=== PATIENT | female | born 1965 | race Caucasian/White ===

== ENCOUNTER 2019-04-11 13:00 | Outpatient (RCR) | payer OTHER, SELFPAY ==
--- NOTE | 2019-02-13 15:20 | PT.OIE ---
Current Diagnoses Pain in left shoulder (02/13/19) Impingement syndrome of left shoulder (02/13/19) Strain of unspecified muscle, fascia and tendon at shoulder and upper arm level, left arm, subsequent encounter (02/13/19) Provider Visit Care Team Role Provider Type Harlan Meade MD Primary Care Provider Physician Specialty: Internal Medicine Address: [address] [place] [address], [id number] Email: Sumit Charlton Attending Provider Non-Staff Specialty: Medical Address: [address] [place] [address], [id number] Email: Physical Therapy Initial Evaluation PT-OP-A Visit Information Start: 02/13/19 12:58 Freq: Status: Active Protocol: Document 02/13/19 15:15 EA (Rec: 02/14/19 07:29 EA [id number]) Out-Patient Physical Therapy Visit Information Visit Information Visit Type Initial Evaluation Visit Start Time 09:00 Visit Stop Time 09:40 Total Visit Minutes 40 Visit Number 1 Number of DIRECTOR REGULATORY COMPLIANCE Visits 0 Evaluation Information Evaluation Date 02/13/19 Precautions Precautions None identified PT-OP-B Current Condition Start: 02/13/19 12:58 Freq: Status: Active Protocol: Document 02/13/19 15:15 EA (Rec: 02/14/19 07:29 EA [id number]) Current Condition History of Current Condition Onset Date January 2018 Current Complaints Left shoulder pain History of Current Condition Present condition started just before right wrist surgery in January 2018. Patient reports favoring right hand increased worked to left shoulder and incident where she uses left arm to lift pile of hutson and feels injured left shoulder on that occasion; states worked in the [employer] with active lifting, pulling and pushing requirement. Patient reports initially tolerated until pain intensified with overhead movement and even resting at night. Patient underwent MRI / X-rays as she stated and diagnosed to have labral tear with bone spurs. She was not able to go for PT treatment due to insurance issue from [employer]. 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 Prior Treatments and Tests Massage, acupuncture helps. MRI-Xrays last year Future Testing and Treatments Planned None identified Treatment Goals Patient/Caregiver Goals Patient would like to get back to PLOF Prior Functional Status Baseline Function- ADL's Independent Baseline Function- Mobility Independent Baseline Function- Gait No limitation Baseline Function- Work/School Work at [employer]: requires active lifting, pulling, pushing of hutson with no limitation prior to January 2018 Current Functional Impairments (Reported) Functional Limitations- ADL's Limited with ADL that requires overhead movement, pushing, lifting Functional Limitations- Mobility/Gait Indep Functional Limitations- Work/School Active 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 Functional Limitations- Recreation/ Unable with overhead movements Hobbies Personal Factors Other Personal Factors That May Effect None identified Therapy/Recovery PT-OP-C Subjective Start: 02/13/19 12:58 Freq: Status: Active Protocol: Document 02/13/19 15:15 EA (Rec: 02/14/19 08:42 EA [id number]) OP-PT Subjective Patient Comments Patient Comments Anything I pull, lift and push using my left arm hurts my shoulder Patient Reported Progress Worse Patient Questionnaires Quick Dash- Upper Extremity Quick Dash UE Score 52 Quick Dash UE Impairment 40 to 59% Impaired (Score 40- 59) PT-OP-E Functional Tests Start: 02/13/19 12:58 Freq: Status: Active Protocol: Document 02/13/19 15:15 EA (Rec: 02/14/19 07:29 EA [id number]) Functional Tests Apley's Scratch Test Action 1- Left ant/lat opp shoulder Action 1- Right Post opp shoulder Action 2- Left C7 Action 2- Right T2 Action 3- Left T12 Action 3- Right T8 PT-OP-J Posture/Palpation/Skin Start: 02/13/19 12:58 Freq: Status: Active Protocol: Document 02/13/19 15:15 EA (Rec: 02/14/19 07:29 EA [id number]) Posture Evaluation Position Standing Evaluation View post/lat Comments Posture Comments Fwd head, rounded shoulders, elev left shoulder. Prominent left scap blade PT-OP-K Range of Motion Start: 02/13/19 12:58 Freq: Status: Active Protocol: Document 02/13/19 15:15 EA (Rec: 02/14/19 07:29 EA [id number]) Shoulder Goniometric Range of Motion Shoulder Right Active Shoulder ROM WFL Yes Left Active Testing Position Sitting Flexion 150 Extension 60 Abduction 150 External Rotation at 90 degrees 70 Abduction Internal Rotation 40 PT-OP-L Special Tests Start: 02/13/19 12:58 Freq: Status: Active Protocol: Document 02/13/19 15:15 EA (Rec: 02/14/19 08:42 EA [id number]) Special Tests Cervical Spine Special Tests Foraminal Compression Test Results - Shoulder Special Tests Clunk Test Test Results unable to perform due to pain Empty Can Test Results + Yergason's Biceps Test Results - Lift-Off Rotator Cuff Test Results + Posterior Impingement Test Results + Youssef Kwadwo Impingement Test Results + Elevation Impingement Test Results + Belly Press Test Results sensitive PT-OP-M Strength Start: 02/13/19 12:58 Freq: Status: Active Protocol: Document 02/13/19 15:15 EA (Rec: 02/14/19 08:42 EA [id number]) Shoulder Strength Shoulder Manual Muscle Testing Left Flexion 4- Good- Extension 4- Good- Abduction (C5) 3+ Fair+ Adduction 4 Good External Rotation 4- Good- Internal Rotation 4- Good- Horizontal Abduction 4- Good- Comments Pain limits accuracy of the tests Right Reason Not Measured WFL Elbow/Forearm Strength Elbow and Forearm Manual Muscle Testing Left Reason Not Measured WFL PT-OP-Q Treatments Start: 02/13/19 12:58 Freq: Status: Active Protocol: Document 02/13/19 15:15 EA (Rec: 02/14/19 08:44 EA [id number]) Therapeutic Exercises Standing Exercises 2 Standing Exercise Name shoulder active stretch Side left Reps/Minutes x15SH x 2 reps 1 Standing Exercise Name AROM: shoulder exten, scap retraction, wall shoulder flexion, Side left Reps/Minutes x 10 reps Self-Care/Home Management Treatment Education Patient Education Home Exercise Program Joint Protection Pain Management Posture Safety PT-OP-T Assessment and Plan Start: 02/13/19 12:58 Freq: Status: Active Protocol: Document 02/13/19 15:15 EA (Rec: 02/14/19 08:42 EA [id number]) Physical Therapy Assessment Rehab Potential Rehabilitation Potential Good Evaluation Complexity Number of Personal Factors/Comorbidities 0 Number of Body Systems Impaired 1-2 Clinical Presentation at Evaluation Stable Impairments Impairments Activity Tolerance Functional Activities Pain Posture ROM Soft Tissue Mobility Strength Goals Four Impairment posture Shrimping Boat Captain Goal (LTG) Patient will exhibit near to normal posture to enhance shoulder functional mobility and prevent abnormal shoulder rhythmn. Three Impairment Impaired ROM Shrimping Boat Captain Goal (LTG) Patient will exhibit full shoulder ABD/F/ ER/IR AROM to enhance functional shoulder mobility LTG Duration 4 wks Two Impairment QuickDash 52 Chcf Goal (LTG) Quick Dash < 25 LTG Duration 5 wks One Impairment No HEP place Shrimping Boat Captain Goal (LTG) Patient will show independent in all HEP LTG Duration 3 wks Assessment Summary Assessment Pleasant 53 y/o F patient with a referring diagnosis of shoulder impingement. Today patient exhibits limited shoulder functional mobility due to pain and weakness. Shoulder assessment reveals LOM to GH joint with slight shoulder substitution of movement in overhead mobility. Special tests positive with rotator cuff dysfunction; labral tests is not possible to identify at this time due to pain. Postural analysis reveals increased thoracic kyphosis, fwd head and internally rotated shoulder. Patient should benefit with skilled PT to improved shoulder function and possibly back to PLOF. Patient exhibits good potential for recovery. Physical Therapy Plan Frequency and Duration Frequency of Treatment 2x/Week Duration of Treatment 8 wks Plan of Care Start Date 02/13/19 Plan of Care End Date 04/10/19 Therapeutic Interventions Therapeutic Interventions Home Exercise Program Joint Mobilizations Manual Therapy Patient/Caregiver Education Self-Care/Home Management Soft Tissue Mobilization Taping Therapeutic Exercises Modalities Cold Pack/Ice Massage Electric Stimulation Hot Packs Ultrasound Next Visit Focus/Plan Next Note Type Treatment Note Next Visit Plan Joint mob for ROM, modalities for pain, therapuetic exercises to ROM.
--- NOTE | 2019-02-13 15:20 | PT.OPPOC ---
Current Diagnoses Pain in left shoulder (02/13/19) Impingement syndrome of left shoulder (02/13/19) Strain of unspecified muscle, fascia and tendon at shoulder and upper arm level, left arm, subsequent encounter (02/13/19) Provider Visit Care Team Role Provider Type Harlan Meade MD Primary Care Provider Physician Specialty: Internal Medicine Address: [address] [place] [address], [id number] Email: Sumit Charlton Attending Provider Non-Staff Specialty: Medical Address: [address] [place] [address], [id number] Email: Plan Of Care PT-OP-T Assessment and Plan Start: 02/13/19 12:58 Freq: Status: Active Protocol: Document 02/13/19 15:15 EA (Rec: 02/14/19 08:42 EA [id number]) Physical Therapy Assessment Rehab Potential Rehabilitation Potential Good Evaluation Complexity Number of Personal Factors/Comorbidities 0 Number of Body Systems Impaired 1-2 Clinical Presentation at Evaluation Stable Impairments Impairments Activity Tolerance Functional Activities Pain Posture ROM Soft Tissue Mobility Strength Goals Four Impairment posture Political Science Faculty Member Goal (LTG) Patient will exhibit near to normal posture to enhance shoulder functional mobility and prevent abnormal shoulder rhythmn. Three Impairment Impaired ROM Prison Goal (LTG) Patient will exhibit full shoulder ABD/F/ ER/IR AROM to enhance functional shoulder mobility LTG Duration 4 wks Two Impairment QuickDash 52 Political Science Faculty Member Goal (LTG) Quick Dash < 25 LTG Duration 5 wks One Impairment No HEP place Political Science Faculty Member Goal (LTG) Patient will show independent in all HEP LTG Duration 3 wks Assessment Summary Assessment Pleasant 53 y/o F patient with a referring diagnosis of shoulder impingement. Today patient exhibits limited shoulder functional mobility due to pain and weakness. Shoulder assessment reveals LOM to GH joint with slight shoulder substitution of movement in overhead mobility. Special tests positive with rotator cuff dysfunction; labral tests is not possible to identify at this time due to pain. Postural analysis reveals increased thoracic kyphosis, fwd head and internally rotated shoulder. Patient should benefit with skilled PT to improved shoulder function and possibly back to PLOF. Patient exhibits good potential for recovery. Physical Therapy Plan Frequency and Duration Frequency of Treatment 2x/Week Duration of Treatment 8 wks Plan of Care Start Date 02/13/19 Plan of Care End Date 04/10/19 Therapeutic Interventions Therapeutic Interventions Home Exercise Program Joint Mobilizations Manual Therapy Patient/Caregiver Education Self-Care/Home Management Soft Tissue Mobilization Taping Therapeutic Exercises Modalities Cold Pack/Ice Massage Electric Stimulation Hot Packs Ultrasound Next Visit Focus/Plan Next Note Type Treatment Note Next Visit Plan Joint mob for ROM, modalities for pain, therapuetic exercises to ROM. Plan of Care Dates Plan of Care Start Date 02/13/19 Plan of Care End Date 04/10/19 Please Sign and Return: I have reviewed this Plan of Care and certify that the skilled therapy services above are required to meet the patient?s needs. Physician Signature Date Printed Name and Credentials Clinical Instructor Signature Printed Name and Credentials
--- NOTE | 2019-02-15 12:52 | PT.OTN ---
Current Diagnoses Pain in left shoulder (02/15/19) Impingement syndrome of left shoulder (02/15/19) Strain of unspecified muscle, fascia and tendon at shoulder and upper arm level, left arm, subsequent encounter (02/15/19) Physical Therapy Treatment Note PT-OP-A Visit Information Start: 02/13/19 12:58 Freq: Status: Active Protocol: Document 02/15/19 12:00 DCW (Rec: 02/15/19 12:52 DCW [id number]) Out-Patient Physical Therapy Visit Information Visit Information Visit Type Treatment Note Visit Start Time 12:00 Visit Stop Time 13:00 Total Visit Minutes 60 Visit Number 2 Number of BARREL DRAINER Visits 0 Evaluation Information Evaluation Date 02/13/19 PT-OP-B Current Condition Start: 02/13/19 12:58 Freq: Status: Active Protocol: Document 02/13/19 15:15 EA (Rec: 02/14/19 07:29 EA [id number]) Current Condition History of Current Condition Onset Date January 2018 Current Complaints Left shoulder pain History of Current Condition Present condition started just before right wrist surgery in January 2018. Patient reports favoring right hand increased worked to left shoulder and incident where she uses left arm to lift pile of hutson and feels injured left shoulder on that occasion; states worked in the [employer] with active lifting, pulling and pushing requirement. Patient reports initially tolerated until pain intensified with overhead movement and even resting at night. Patient underwent MRI / X-rays as she stated and diagnosed to have labral tear with bone spurs. She was not able to go for PT treatment due to insurance issue from [employer]. 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 Prior Treatments and Tests Massage, acupuncture helps. MRI-Xrays last year Future Testing and Treatments Planned None identified Treatment Goals Patient/Caregiver Goals Patient would like to get back to [facility] Prior Functional Status Baseline Function- ADL's Independent Baseline Function- Mobility Independent Baseline Function- Gait No limitation Baseline Function- Work/School Work at [employer]: requires active lifting, pulling, pushing of hutson with no limitation prior to January 2018 Current Functional Impairments (Reported) Functional Limitations- ADL's Limited with ADL that requires overhead movement, pushing, lifting Functional Limitations- Mobility/Gait Indep Functional Limitations- Work/School Active 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 PT-OP-E Functional Tests Start: 02/13/19 12:58 Freq: Status: Active Protocol: Document 02/13/19 15:15 EA (Rec: 02/14/19 07:29 EA [id number]) Functional Tests Apley's Scratch Test Action 1- Left ant/lat opp shoulder Action 1- Right Post opp shoulder Action 2- Left C7 Action 2- Right T2 Action 3- Left T12 Action 3- Right T8 PT-OP-J Posture/Palpation/Skin Start: 02/13/19 12:58 Freq: Status: Active Protocol: Document 02/13/19 15:15 EA (Rec: 02/14/19 07:29 EA [id number]) Posture Evaluation Position Standing Evaluation View post/lat Comments Posture Comments Fwd head, rounded shoulders, elev left shoulder. Prominent left scap blade PT-OP-K Range of Motion Start: 02/13/19 12:58 Freq: Status: Active Protocol: Document 02/13/19 15:15 EA (Rec: 02/14/19 07:29 EA [id number]) Shoulder Goniometric Range of Motion Shoulder Right Active Shoulder ROM WFL Yes Left Active Testing Position Sitting Flexion 150 Extension 60 Abduction 150 External Rotation at 90 degrees 70 Abduction Internal Rotation 40 PT-OP-L Special Tests Start: 02/13/19 12:58 Freq: Status: Active Protocol: Document 02/13/19 15:15 EA (Rec: 02/14/19 08:42 EA [id number]) Special Tests Cervical Spine Special Tests Foraminal Compression Test Results - Shoulder Special Tests Clunk Test Test Results unable to perform due to pain Empty Can Test Results + Yergason's Biceps Test Results - Lift-Off Rotator Cuff Test Results + Posterior Impingement Test Results + Youssef Kwadwo Impingement Test Results + Elevation Impingement Test Results + Belly Press Test Results sensitive PT-OP-M Strength Start: 02/13/19 12:58 Freq: Status: Active Protocol: Document 02/13/19 15:15 EA (Rec: 02/14/19 08:42 EA [id number]) Shoulder Strength Shoulder Manual Muscle Testing Left Flexion 4- Good- Extension 4- Good- Abduction (C5) 3+ Fair+ Adduction 4 Good External Rotation 4- Good- Internal Rotation 4- Good- Horizontal Abduction 4- Good- Comments Pain limits accuracy of the tests Right Reason Not Measured WFL Elbow/Forearm Strength Elbow and Forearm Manual Muscle Testing Left Reason Not Measured WFL PT-OP-Q Treatments Start: 02/13/19 12:58 Freq: Status: Active Protocol: Document 02/15/19 12:00 DCW (Rec: 02/15/19 12:52 DCW [id number]) Cardio Equipment Upper Body Ergometer (UBE) Duration (Minutes) 5 Seat Position 11 Height 3 Other as tolerated Therapeutic Exercises Sitting Exercises Passive Abduction Sitting Exercise Name Passive Abduction Side bilateral Equipment Used Pulleys Comments pain-free ROM Passive Flexion Sitting Exercise Name Passive flexion Side bilateral Equipment Used Pulleys Comments pain-free ROM Standing Exercises 5 Standing Exercise Name Shoulder Extension Side bilateral Resistance Lv 2 Equipment Used T-band 4 Standing Exercise Name Internal Rotation Side left Resistance Lv 2 Equipment Used T-band 3 Standing Exercise Name External Rotation Side left Resistance Lv 2 Equipment Used T-band Manual Therapy Treatment Joint Mobilizations Scapular Mob Joint L scapula Direction Protraction/Retraction Body Position Sitting GH Joint Left GH Direction Inferior Grade II Body Position Sitting Comments c/o pain Manual Techniques Passive ROM Type Flexion, ER/IR, Circumduction Body Location Left GH Body Position Sitting PT-OP-R Modalities Start: 02/13/19 12:58 Freq: Status: Active Protocol: Document 02/15/19 12:00 DCW (Rec: 02/15/19 12:52 DCW [id number]) Electric Stimulation Electric Stimulation Interferential Current (IFC) Body Location L shoulder Duration (Minutes) 15 Patient Position Sitting Combined With Heat/Cold Hot Pack PT-OP-T Assessment and Plan Start: 02/13/19 12:58 Freq: Status: Active Protocol: Document 02/15/19 12:00 DCW (Rec: 02/15/19 12:52 DCW [id number]) Physical Therapy Assessment Impairments Impairments Activity Tolerance Functional Activities Pain Posture ROM Soft Tissue Mobility Strength Goals Four Impairment posture Correction Goal (LTG) Patient will exhibit near to normal posture to enhance shoulder functional mobility and prevent abnormal shoulder rhythmn. Three Impairment Impaired ROM Correction Goal (LTG) Patient will exhibit full shoulder ABD/F/ ER/IR AROM to enhance functional shoulder mobility LTG Duration 4 wks Two Impairment QuickDash 52 Groundman/Lineman Goal (LTG) Quick Dash < 25 LTG Duration 5 wks One Impairment No HEP place Correction Goal (LTG) Patient will show independent in all HEP LTG Duration 3 wks Assessment Summary Assessment Pt tolerated treatment very well, however did have mild complaints of pain with ends- range ROM and GH inferior joint mobilization. Pt experiences some popping in her joint with ROM, notes it does not increase her pain. Physical Therapy Plan Frequency and Duration Frequency of Treatment 2x/Week Duration of Treatment 8 wks Plan of Care Start Date 02/13/19 Plan of Care End Date 04/10/19 Therapeutic Interventions Therapeutic Interventions Home Exercise Program Joint Mobilizations Manual Therapy Patient/Caregiver Education Self-Care/Home Management Soft Tissue Mobilization Taping Therapeutic Exercises Modalities Cold Pack/Ice Massage Electric Stimulation Hot Packs Ultrasound Next Visit Focus/Plan Next Note Type Treatment Note Next Visit Plan Joint mob for ROM, modalities for pain, therapuetic exercises to ROM.
--- NOTE | 2019-02-20 16:52 | PT.OTN ---
Current Diagnoses Pain in left shoulder (02/20/19) Impingement syndrome of left shoulder (02/20/19) Strain of unspecified muscle, fascia and tendon at shoulder and upper arm level, left arm, subsequent encounter (02/20/19) Physical Therapy Treatment Note PT-OP-A Visit Information Start: 02/13/19 12:58 Freq: Status: Active Protocol: Document 02/20/19 15:32 EA (Rec: 02/20/19 15:33 EA [id number]) Out-Patient Physical Therapy Visit Information Visit Information Visit Type Treatment Note Visit Start Time 14:30 Visit Stop Time 15:23 Total Visit Minutes 53 Visit Number 3 PT-OP-B Current Condition Start: 02/13/19 12:58 Freq: Status: Active Protocol: Document 02/13/19 15:15 EA (Rec: 02/14/19 07:29 EA [id number]) Current Condition History of Current Condition Onset Date January 2018 Current Complaints Left shoulder pain History of Current Condition Present condition started just before right wrist surgery in January 2018. Patient reports favoring right hand increased worked to left shoulder and incident where she uses left arm to lift pile of hutson and feels injured left shoulder on that occasion; states worked in the [employer] with active lifting, pulling and pushing requirement. Patient reports initially tolerated until pain intensified with overhead movement and even resting at night. Patient underwent MRI / X-rays as she stated and diagnosed to have labral tear with bone spurs. She was not able to go for PT treatment due to insurance issue from [employer]. 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 Prior Treatments and Tests Massage, acupuncture helps. MRI-Xrays last year Future Testing and Treatments Planned None identified Treatment Goals Patient/Caregiver Goals Patient would like to get back to PLOF Prior Functional Status Baseline Function- ADL's Independent Baseline Function- Mobility Independent Baseline Function- Gait No limitation Baseline Function- Work/School Work at [employer]: requires active lifting, pulling, pushing of hutson with no limitation prior to January 2018 Current Functional Impairments (Reported) Functional Limitations- ADL's Limited with ADL that requires overhead movement, pushing, lifting Functional Limitations- Mobility/Gait Indep Functional Limitations- Work/School Active 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 with 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 Functional Limitations- Recreation/ Unable with overhead movements Hobbies Personal Factors Other Personal Factors That May Effect None identified Therapy/Recovery PT-OP-C Subjective Start: 02/13/19 12:58 Freq: Status: Active Protocol: Document 02/20/19 15:24 EA (Rec: 02/20/19 15:32 EA [id number]) OP-PT Subjective Patient Comments Patient Comments Pt reports shoulder T-bar extension really hurts PT-OP-E Functional Tests Start: 02/13/19 12:58 Freq: Status: Active Protocol: Document 02/13/19 15:15 EA (Rec: 02/14/19 07:29 EA [id number]) Functional Tests Apley's Scratch Test Action 1- Left ant/lat opp shoulder Action 1- Right Post opp shoulder Action 2- Left C7 Action 2- Right T2 Action 3- Left T12 Action 3- Right T8 PT-OP-J Posture/Palpation/Skin Start: 02/13/19 12:58 Freq: Status: Active Protocol: Document 02/13/19 15:15 EA (Rec: 02/14/19 07:29 EA [id number]) Posture Evaluation Position Standing Evaluation View post/lat Comments Posture Comments Fwd head, rounded shoulders, elev left shoulder. Prominent left scap blade PT-OP-K Range of Motion Start: 02/13/19 12:58 Freq: Status: Active Protocol: Document 02/13/19 15:15 EA (Rec: 02/14/19 07:29 EA [id number]) Shoulder Goniometric Range of Motion Shoulder Right Active Shoulder ROM WFL Yes Left Active Testing Position Sitting Flexion 150 Extension 60 Abduction 150 External Rotation at 90 degrees 70 Abduction Internal Rotation 40 PT-OP-L Special Tests Start: 02/13/19 12:58 Freq: Status: Active Protocol: Document 02/13/19 15:15 EA (Rec: 02/14/19 08:42 EA [id number]) Special Tests Cervical Spine Special Tests Foraminal Compression Test Results - Shoulder Special Tests Clunk Test Test Results unable to perform due to pain Empty Can Test Results + Yergason's Biceps Test Results - Lift-Off Rotator Cuff Test Results + Posterior Impingement Test Results + Youssef Kwadwo Impingement Test Results + Elevation Impingement Test Results + Belly Press Test Results sensitive PT-OP-M Strength Start: 02/13/19 12:58 Freq: Status: Active Protocol: Document 02/13/19 15:15 EA (Rec: 02/14/19 08:42 EA [id number]) Shoulder Strength Shoulder Manual Muscle Testing Left Flexion 4- Good- Extension 4- Good- Abduction (C5) 3+ Fair+ Adduction 4 Good External Rotation 4- Good- Internal Rotation 4- Good- Horizontal Abduction 4- Good- Comments Pain limits accuracy of the tests Right Reason Not Measured WFL Elbow/Forearm Strength Elbow and Forearm Manual Muscle Testing Left Reason Not Measured WFL PT-OP-Q Treatments Start: 02/13/19 12:58 Freq: Status: Active Protocol: Document 02/20/19 15:24 EA (Rec: 02/20/19 15:32 EA [id number]) Therapeutic Exercises Sidelying Exercises 3 Sidelying Exercise Name ER Reps/Minutes x 15 reps 2 Sidelying Exercise Name Horiz abduction Reps/Minutes x 15 reps 1 Sidelying Exercise Name Abductio Side left Reps/Minutes x 15 reps Standing Exercises 5 Standing Exercise Name Shoulder Extension Side bilateral Resistance T-bar Reps/Minutes x 15 reps x 2 4 Standing Exercise Name Internal Rotation Side left Resistance Lv 2 Equipment Used T-band 1 Standing Exercise Name AROM: shoulder exten, scap retraction, wall shoulder flexion, Side bilateral Reps/Minutes x 10 reps Manual Therapy Treatment Soft Tissue Mobilization 1 Body Location IS/SS/traps, SA, SS tendon Mobilization Type Cross-Friction Myofascial Release Rolling Intensity/Depth Moderate Body Position Hooklying Joint Mobilizations Scapular Mob Joint L scapula Direction Protraction/Retraction Body Position Sitting GH Joint Left GH Direction Inferior Grade II Body Position Supine Comments tolerated Manual Techniques Passive ROM Type Flexion, ER/IR, Circumduction Body Location Left GH Body Position Sitting PT-OP-R Modalities Start: 02/13/19 12:58 Freq: Status: Active Protocol: Document 02/20/19 15:24 EA (Rec: 02/20/19 15:32 EA [id number]) Electric Stimulation Electric Stimulation Interferential Current (IFC) Body Location L shoulder Duration (Minutes) 15 Patient Position Sitting Combined With Heat/Cold Hot Pack PT-OP-T Assessment and Plan Start: 02/13/19 12:58 Freq: Status: Active Protocol: Document 02/20/19 15:24 EA (Rec: 02/20/19 15:32 EA [id number]) Physical Therapy Assessment Assessment Summary Assessment Pt tolerated treatment with mild complaint of discomfort with therex beyond 90 deg.
--- NOTE | 2019-02-25 15:54 | PT.OTN ---
Current Diagnoses Pain in left shoulder (02/25/19) Impingement syndrome of left shoulder (02/25/19) Strain of unspecified muscle, fascia and tendon at shoulder and upper arm level, left arm, subsequent encounter (02/25/19) Physical Therapy Treatment Note PT-OP-A Visit Information Start: 02/13/19 12:58 Freq: Status: Active Protocol: Document 02/25/19 15:15 DCW (Rec: 02/25/19 15:54 DCW [id number]) Out-Patient Physical Therapy Visit Information Visit Information Visit Type Treatment Note Visit Start Time 15:15 Visit Stop Time 16:05 Total Visit Minutes 50 Visit Number 4 Number of [employer]MA[employer]IST Visits 0 Evaluation Information Evaluation Date 02/13/19 PT-OP-B Current Condition Start: 02/13/19 12:58 Freq: Status: Active Protocol: Document 02/13/19 15:15 EA (Rec: 02/14/19 07:29 EA [id number]) Current Condition History of Current Condition Onset Date January 2018 Current Complaints Left shoulder pain History of Current Condition Present condition started just before right wrist surgery in January 2018. Patient reports favoring right hand increased worked to left shoulder and incident where she uses left arm to lift pile of hutson and feels injured left shoulder on that occasion; states worked in the [employer] with active lifting, pulling and pushing requirement. Patient reports initially tolerated until pain intensified with overhead movement and even resting at night. Patient underwent MRI / X-rays as she stated and diagnosed to have labral tear with bone spurs. She was not able to go for PT treatment due to insurance issue from [employer]. 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 Prior Treatments and Tests Massage, acupuncture helps. MRI-Xrays last year Future Testing and Treatments Planned None identified Treatment Goals Patient/Caregiver Goals Patient would like to get back to [facility] Prior Functional Status Baseline Function- ADL's Independent Baseline Function- Mobility Independent Baseline Function- Gait No limitation Baseline Function- Work/School Work at [employer]: requires active lifting, pulling, pushing of hutson with no limitation prior to January 2018 Current Functional Impairments (Reported) Functional Limitations- ADL's Limited with ADL that requires overhead movement, pushing, lifting Functional Limitations- Mobility/Gait Indep Functional Limitations- Work/School 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 PT-OP-E Functional Tests Start: 02/13/19 12:58 Freq: Status: Active Protocol: Document 02/13/19 15:15 EA (Rec: 02/14/19 07:29 EA [id number]) Functional Tests Apley's Scratch Test Action 1- Left ant/lat opp shoulder Action 1- Right Post opp shoulder Action 2- Left C7 Action 2- Right T2 Action 3- Left T12 Action 3- Right T8 PT-OP-J Posture/Palpation/Skin Start: 02/13/19 12:58 Freq: Status: Active Protocol: Document 02/13/19 15:15 EA (Rec: 02/14/19 07:29 EA [id number]) Posture Evaluation Position Standing Evaluation View post/lat Comments Posture Comments Fwd head, rounded shoulders, elev left shoulder. Prominent left scap blade PT-OP-K Range of Motion Start: 02/13/19 12:58 Freq: Status: Active Protocol: Document 02/13/19 15:15 EA (Rec: 02/14/19 07:29 EA [id number]) Shoulder Goniometric Range of Motion Shoulder Right Active Shoulder ROM WFL Yes Left Active Testing Position Sitting Flexion 150 Extension 60 Abduction 150 External Rotation at 90 degrees 70 Abduction Internal Rotation 40 PT-OP-L Special Tests Start: 02/13/19 12:58 Freq: Status: Active Protocol: Document 02/13/19 15:15 EA (Rec: 02/14/19 08:42 EA [id number]) Special Tests Cervical Spine Special Tests Foraminal Compression Test Results - Shoulder Special Tests Clunk Test Test Results unable to perform due to pain Empty Can Test Results + Yergason's Biceps Test Results - Lift-Off Rotator Cuff Test Results + Posterior Impingement Test Results + Youssef Kwadwo Impingement Test Results + Elevation Impingement Test Results + Belly Press Test Results sensitive PT-OP-M Strength Start: 02/13/19 12:58 Freq: Status: Active Protocol: Document 02/13/19 15:15 EA (Rec: 02/14/19 08:42 EA [id number]) Shoulder Strength Shoulder Manual Muscle Testing Left Flexion 4- Good- Extension 4- Good- Abduction (C5) 3+ Fair+ Adduction 4 Good External Rotation 4- Good- Internal Rotation 4- Good- Horizontal Abduction 4- Good- Comments Pain limits accuracy of the tests Right Reason Not Measured WFL Elbow/Forearm Strength Elbow and Forearm Manual Muscle Testing Left Reason Not Measured WFL PT-OP-Q Treatments Start: 02/13/19 12:58 Freq: Status: Active Protocol: Document 02/25/19 15:15 DCW (Rec: 02/25/19 15:54 DCW [id number]) Therapeutic Exercises Standing Exercises 7 Standing Exercise Name Shoulder Adduction Side left Resistance Lv 2 Equipment Used T-band 6 Standing Exercise Name Passive IR Side left Equipment Used Pulleys 5 Standing Exercise Name Shoulder Extension Side bilateral Resistance Lv 2 Equipment Used T-band 4 Standing Exercise Name Internal Rotation Side left Resistance Lv 2 Equipment Used T-band Other Exercises 1 Other Exercise Name Resisted UE side-stepping @ rail Resistance Yellow Equipment Used T-band Manual Therapy Treatment Joint Mobilizations Scapular Mob Joint L scapula Direction Protraction/Retraction Body Position Sitting GH Joint Left GH Direction Inferior Grade II Body Position Sitting Comments c/o pain Manual Techniques Passive ROM Type Flexion, ER/IR, Circumduction Body Location Left GH Body Position Sitting PT-OP-R Modalities Start: 02/13/19 12:58 Freq: Status: Active Protocol: Document 02/25/19 15:15 DCW (Rec: 02/25/19 15:54 DCW [id number]) Electric Stimulation Electric Stimulation Interferential Current (IFC) Body Location L shoulder Duration (Minutes) 15 Patient Position Sitting Combined With Heat/Cold Hot Pack PT-OP-T Assessment and Plan Start: 02/13/19 12:58 Freq: Status: Active Protocol: Document 02/25/19 15:15 DCW (Rec: 02/25/19 15:54 DCW [id number]) Physical Therapy Assessment Impairments Impairments Activity Tolerance Functional Activities Pain Posture ROM Soft Tissue Mobility Strength Goals Four Impairment posture Label Folder Goal (LTG) Patient will exhibit near to normal posture to enhance shoulder functional mobility and prevent abnormal shoulder rhythmn. Three Impairment Impaired ROM Detention Goal (LTG) Patient will exhibit full shoulder ABD/F/ ER/IR AROM to enhance functional shoulder mobility LTG Duration 4 wks Two Impairment QuickDash 52 Detention Goal (LTG) Quick Dash < 25 LTG Duration 5 wks One Impairment No HEP place Detention Goal (LTG) Patient will show independent in all HEP LTG Duration 3 wks Assessment Summary Assessment Pt had mild complaints of pain with flexion/extension over 90?, but tolerated addition of new exercises well. Physical Therapy Plan Frequency and Duration Frequency of Treatment 2x/Week Duration of Treatment 8 wks Plan of Care Start Date 02/13/19 Plan of Care End Date 04/10/19 Therapeutic Interventions Therapeutic Interventions Home Exercise Program Joint Mobilizations Manual Therapy Patient/Caregiver Education Self-Care/Home Management Soft Tissue Mobilization Taping Therapeutic Exercises Modalities Cold Pack/Ice Massage Electric Stimulation Hot Packs Ultrasound Next Visit Focus/Plan Next Note Type Treatment Note Next Visit Plan Joint mob for ROM, modalities for pain, therapuetic exercises to ROM.
--- NOTE | 2019-02-27 17:25 | PT.OTN ---
Current Diagnoses Pain in left shoulder (02/27/19) Impingement syndrome of left shoulder (02/27/19) Strain of unspecified muscle, fascia and tendon at shoulder and upper arm level, left arm, subsequent encounter (02/27/19) Physical Therapy Treatment Note PT-OP-A Visit Information Start: 02/13/19 12:58 Freq: Status: Active Protocol: Document 02/27/19 17:32 EA (Rec: 02/27/19 17:38 EA [id number]) Out-Patient Physical Therapy Visit Information Visit Information Visit Type Treatment Note Visit Start Time 16:00 Visit Stop Time 16:53 Total Visit Minutes 53 Visit Number 5 PT-OP-B Current Condition Start: 02/13/19 12:58 Freq: Status: Active Protocol: Document 02/13/19 15:15 EA (Rec: 02/14/19 07:29 EA [id number]) Current Condition History of Current Condition Onset Date January 2018 Current Complaints Left shoulder pain History of Current Condition Present condition started just before right wrist surgery in January 2018. Patient reports favoring right hand increased worked to left shoulder and incident where she uses left arm to lift pile of hutson and feels injured left shoulder on that occasion; states worked in the [employer] with active lifting, pulling and pushing requirement. Patient reports initially tolerated until pain intensified with overhead movement and even resting at night. Patient underwent MRI / X-rays as she stated and diagnosed to have labral tear with bone spurs. She was not able to go for PT treatment due to insurance issue from [employer]. 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 Prior Treatments and Tests Massage, acupuncture helps. MRI-Xrays last year Future Testing and Treatments Planned None identified Treatment Goals Patient/Caregiver Goals Patient would like to get back to PLOF Prior Functional Status Baseline Function- ADL's Independent Baseline Function- Mobility Independent Baseline Function- Gait No limitation Baseline Function- Work/School Work at [employer]: requires active lifting, pulling, pushing of hutson with no limitation prior to January 2018 Current Functional Impairments (Reported) Functional Limitations- ADL's Limited with ADL that requires overhead movement, pushing, lifting Functional Limitations- Mobility/Gait Indep Functional Limitations- Work/School 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 PT-OP-E Functional Tests Start: 02/13/19 12:58 Freq: Status: Active Protocol: Document 02/13/19 15:15 EA (Rec: 02/14/19 07:29 EA [id number]) Functional Tests Apley's Scratch Test Action 1- Left ant/lat opp shoulder Action 1- Right Post opp shoulder Action 2- Left C7 Action 2- Right T2 Action 3- Left T12 Action 3- Right T8 PT-OP-J Posture/Palpation/Skin Start: 02/13/19 12:58 Freq: Status: Active Protocol: Document 02/13/19 15:15 EA (Rec: 02/14/19 07:29 EA [id number]) Posture Evaluation Position Standing Evaluation View post/lat Comments Posture Comments Fwd head, rounded shoulders, elev left shoulder. Prominent left scap blade PT-OP-K Range of Motion Start: 02/13/19 12:58 Freq: Status: Active Protocol: Document 02/13/19 15:15 EA (Rec: 02/14/19 07:29 EA [id number]) Shoulder Goniometric Range of Motion Shoulder Right Active Shoulder ROM WFL Yes Left Active Testing Position Sitting Flexion 150 Extension 60 Abduction 150 External Rotation at 90 degrees 70 Abduction Internal Rotation 40 PT-OP-L Special Tests Start: 02/13/19 12:58 Freq: Status: Active Protocol: Document 02/13/19 15:15 EA (Rec: 02/14/19 08:42 EA [id number]) Special Tests Cervical Spine Special Tests Foraminal Compression Test Results - Shoulder Special Tests Clunk Test Test Results unable to perform due to pain Empty Can Test Results + Yergason's Biceps Test Results - Lift-Off Rotator Cuff Test Results + Posterior Impingement Test Results + Youssef Kwadwo Impingement Test Results + Elevation Impingement Test Results + Belly Press Test Results sensitive PT-OP-M Strength Start: 02/13/19 12:58 Freq: Status: Active Protocol: Document 02/13/19 15:15 EA (Rec: 02/14/19 08:42 EA [id number]) Shoulder Strength Shoulder Manual Muscle Testing Left Flexion 4- Good- Extension 4- Good- Abduction (C5) 3+ Fair+ Adduction 4 Good External Rotation 4- Good- Internal Rotation 4- Good- Horizontal Abduction 4- Good- Comments Pain limits accuracy of the tests Right Reason Not Measured WFL Elbow/Forearm Strength Elbow and Forearm Manual Muscle Testing Left Reason Not Measured WFL PT-OP-Q Treatments Start: 02/13/19 12:58 Freq: Status: Active Protocol: Document 02/27/19 17:32 EA (Rec: 02/27/19 17:38 EA [id number]) Cardio Equipment Upper Body Ergometer (UBE) Duration (Minutes) 5 Seat Position 11 Height 4 Other as tolerated Therapeutic Exercises Prone Exercises 1 Prone Exercise Name T-ball: Y-T-I Resistance 1# Reps/Minutes x 10 reps Standing Exercises 8 Standing Exercise Name Wall T-bar shoulder flexion Reps/Minutes x 15 reps 7 Standing Exercise Name Shoulder Adduction Side left Resistance Lv 2 Equipment Used T-band 5 Standing Exercise Name Shoulder Extension Side bilateral Resistance Lv 2 Equipment Used T-band 4 Standing Exercise Name Internal Rotation Side left Resistance Lv 2 Equipment Used T-band 3 Standing Exercise Name External Rotation Side left Resistance Lv 1 Equipment Used T-band 2 Standing Exercise Name DB soulder abd at 0-90 Resistance 1# Reps/Minutes x 12 reps 1 Standing Exercise Name DB Shoulder flexion Resistance 1# Reps/Minutes x 12 reps Manual Therapy Treatment Soft Tissue Mobilization 1 Body Location IS/SS/traps, SA, SS tendon Mobilization Type Cross-Friction Myofascial Release Rolling Intensity/Depth Moderate Body Position Hooklying PT-OP-R Modalities Start: 02/13/19 12:58 Freq: Status: Active Protocol: Document 02/27/19 17:32 EA (Rec: 02/27/19 17:38 EA [id number]) Electric Stimulation Electric Stimulation Interferential Current (IFC) Body Location L posterior shoulder Duration (Minutes) 15 Intensity 15 Patient Position Prone Combined With Heat/Cold Hot Pack PT-OP-T Assessment and Plan Start: 02/13/19 12:58 Freq: Status: Active Protocol: Document 02/27/19 17:32 EA (Rec: 02/27/19 17:38 EA [id number]) Physical Therapy Assessment Assessment Summary Assessment Tolerated resistance exercises well. Cont. with current plan Physical Therapy Plan Next Visit Focus/Plan Next Note Type Treatment Note Next Visit Plan Joint mob for ROM, modalities for pain, therapuetic exercises to ROM.
--- NOTE | 2019-03-11 15:59 | PT.OTN ---
Current Diagnoses Pain in left shoulder (03/11/19) Impingement syndrome of left shoulder (03/11/19) Strain of unspecified muscle, fascia and tendon at shoulder and upper arm level, left arm, subsequent encounter (03/11/19) Physical Therapy Treatment Note PT-OP-A Visit Information Start: 02/13/19 12:58 Freq: Status: Active Protocol: Document 03/11/19 15:04 EA (Rec: 03/11/19 15:12 EA [id number]) Out-Patient Physical Therapy Visit Information Visit Information Visit Type Treatment Note Visit Start Time 13:45 Visit Stop Time 14:43 Total Visit Minutes 56 Visit Number 6 PT-OP-B Current Condition Start: 02/13/19 12:58 Freq: Status: Active Protocol: Document 02/13/19 15:15 EA (Rec: 02/14/19 07:29 EA [id number]) Current Condition History of Current Condition Onset Date January 2018 Current Complaints Left shoulder pain History of Current Condition Present condition started just before right wrist surgery in January 2018. Patient reports favoring right hand increased worked to left shoulder and incident where she uses left arm to lift pile of hutson and feels injured left shoulder on that occasion; states worked in the [employer] with active lifting, pulling and pushing requirement. Patient reports initially tolerated until pain intensified with overhead movement and even resting at night. Patient underwent MRI / X-rays as she stated and diagnosed to have labral tear with bone spurs. She was not able to go for PT treatment due to insurance issue from [employer]. 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 Prior Treatments and Tests Massage, acupuncture helps. MRI-Xrays last year Future Testing and Treatments Planned None identified Treatment Goals Patient/Caregiver Goals Patient would like to get back to PLOF Prior Functional Status Baseline Function- ADL's Independent Baseline Function- Mobility Independent Baseline Function- Gait No limitation Baseline Function- Work/School Work at [employer]: requires active lifting, pulling, pushing of hutson with no limitation prior to January 2018 Current Functional Impairments (Reported) Functional Limitations- ADL's Limited with ADL that requires overhead movement, pushing, lifting Functional Limitations- Mobility/Gait Indep Functional Limitations- Work/School 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 She also reports about right wrist joint pain; states that she is scared that the case would close and never have any treament in it. PT-OP-E Functional Tests Start: 02/13/19 12:58 Freq: Status: Active Protocol: Document 02/13/19 15:15 EA (Rec: 02/14/19 07:29 EA [id number]) Functional Tests Apley's Scratch Test Action 1- Left ant/lat opp shoulder Action 1- Right Post opp shoulder Action 2- Left C7 Action 2- Right T2 Action 3- Left T12 Action 3- Right T8 PT-OP-J Posture/Palpation/Skin Start: 02/13/19 12:58 Freq: Status: Active Protocol: Document 02/13/19 15:15 EA (Rec: 02/14/19 07:29 EA [id number]) Posture Evaluation Position Standing Evaluation View post/lat Comments Posture Comments Fwd head, rounded shoulders, elev left shoulder. Prominent left scap blade PT-OP-K Range of Motion Start: 02/13/19 12:58 Freq: Status: Active Protocol: Document 02/13/19 15:15 EA (Rec: 02/14/19 07:29 EA [id number]) Shoulder Goniometric Range of Motion Shoulder Right Active Shoulder ROM WFL Yes Left Active Testing Position Sitting Flexion 150 Extension 60 Abduction 150 External Rotation at 90 degrees 70 Abduction Internal Rotation 40 PT-OP-L Special Tests Start: 02/13/19 12:58 Freq: Status: Active Protocol: Document 02/13/19 15:15 EA (Rec: 02/14/19 08:42 EA [id number]) Special Tests Cervical Spine Special Tests Foraminal Compression Test Results - Shoulder Special Tests Clunk Test Test Results unable to perform due to pain Empty Can Test Results + Yergason's Biceps Test Results - Lift-Off Rotator Cuff Test Results + Posterior Impingement Test Results + Youssef Kwadwo Impingement Test Results + Elevation Impingement Test Results + Belly Press Test Results sensitive PT-OP-M Strength Start: 02/13/19 12:58 Freq: Status: Active Protocol: Document 02/13/19 15:15 EA (Rec: 02/14/19 08:42 EA [id number]) Shoulder Strength Shoulder Manual Muscle Testing Left Flexion 4- Good- Extension 4- Good- Abduction (C5) 3+ Fair+ Adduction 4 Good External Rotation 4- Good- Internal Rotation 4- Good- Horizontal Abduction 4- Good- Comments Pain limits accuracy of the tests Right Reason Not Measured WFL Elbow/Forearm Strength Elbow and Forearm Manual Muscle Testing Left Reason Not Measured WFL PT-OP-Q Treatments Start: 02/13/19 12:58 Freq: Status: Active Protocol: Document 03/11/19 15:04 EA (Rec: 03/11/19 15:12 EA [id number]) Cardio Equipment Upper Body Ergometer (UBE) Duration (Minutes) 6 Seat Position 11 Height 4 Other as tolerated Therapeutic Exercises Supine Exercises 1 Supine Exercise Name Shoulder press Resistance 2# Reps/Minutes x 15 reps x 2 Prone Exercises 1 Prone Exercise Name T-ball: Y-T-I Resistance 1# Reps/Minutes x 10 reps Sidelying Exercises 4 Sidelying Exercise Name SHOULDER ABD Resistance 1# Reps/Minutes x 15 reps 3 Sidelying Exercise Name ER Resistance 1# Reps/Minutes x 15 reps 2 Sidelying Exercise Name Horiz abduction Side left Resistance 1# Reps/Minutes x 15 reps Standing Exercises 8 Standing Exercise Name Wall T-bar shoulder flexion Reps/Minutes x 15 reps Manual Therapy Treatment Soft Tissue Mobilization 1 Body Location IS/SS/traps, SA, SS tendon Mobilization Type Cross-Friction Myofascial Release Rolling Intensity/Depth Moderate Body Position Hooklying PT-OP-R Modalities Start: 02/13/19 12:58 Freq: Status: Active Protocol: Document 03/11/19 15:04 EA (Rec: 03/11/19 15:12 EA [id number]) Ultrasound Therapy Treatment Left Anterior Shoulder Treatment Duration (minutes) 8 Patient Position Supine Frequency Setting (mHz) 1 Mode Setting Continuous Intensity Setting (w/cm2) 1 PT-OP-T Assessment and Plan Start: 02/13/19 12:58 Freq: Status: Active Protocol: Document 03/11/19 15:04 EA (Rec: 03/11/19 15:12 EA [id number]) Physical Therapy Assessment Assessment Summary Assessment no noted any signs of acute inflammation to right wrist. I advised patient patient to see her doctor for wrist recommendation. Shoulder exercises tolerated today with minor discomfort shoulder F/ ABD past 110 deg. Physical Therapy Plan Next Visit Focus/Plan Next Note Type Treatment Note Next Visit Plan Joint mob for ROM, modalities for pain, therapuetic exercises to ROM.
--- NOTE | 2019-03-14 14:42 | PT.OTN ---
Current Diagnoses Pain in left shoulder (03/14/19) Impingement syndrome of left shoulder (03/14/19) Strain of unspecified muscle, fascia and tendon at shoulder and upper arm level, left arm, subsequent encounter (03/14/19) Physical Therapy Treatment Note PT-OP-A Visit Information Start: 02/13/19 12:58 Freq: Status: Active Protocol: Document 03/14/19 14:31 EA (Rec: 03/14/19 14:41 EA [id number]) Out-Patient Physical Therapy Visit Information Visit Information Visit Type Treatment Note Visit Start Time 13:45 Visit Stop Time 14:38 Total Visit Minutes 53 Visit Number 7 PT-OP-B Current Condition Start: 02/13/19 12:58 Freq: Status: Active Protocol: Document 02/13/19 15:15 EA (Rec: 02/14/19 07:29 EA [id number]) Current Condition History of Current Condition Onset Date January 2018 Current Complaints Left shoulder pain History of Current Condition Present condition started just before right wrist surgery in January 2018. Patient reports favoring right hand increased worked to left shoulder and incident where she uses left arm to lift pile of hutson and feels injured left shoulder on that occasion; states worked in the [employer] with active lifting, pulling and pushing requirement. Patient reports initially tolerated until pain intensified with overhead movement and even resting at night. Patient underwent MRI / X-rays as she stated and diagnosed to have labral tear with bone spurs. She was not able to go for PT treatment due to insurance issue from [employer]. 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 Prior Treatments and Tests Massage, acupuncture helps. MRI-Xrays last year Future Testing and Treatments Planned None identified Treatment Goals Patient/Caregiver Goals Patient would like to get back to PLOF Prior Functional Status Baseline Function- ADL's Independent Baseline Function- Mobility Independent Baseline Function- Gait No limitation Baseline Function- Work/School Work at [employer]: requires active lifting, pulling, pushing of hutson with no limitation prior to January 2018 Current Functional Impairments (Reported) Functional Limitations- ADL's Limited with ADL that requires overhead movement, pushing, lifting Functional Limitations- Mobility/Gait Indep Functional Limitations- Work/School 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 States [place] work [place] the park. PT-OP-E Functional Tests Start: 02/13/19 12:58 Freq: Status: Active Protocol: Document 02/13/19 15:15 EA (Rec: 02/14/19 07:29 EA [id number]) Functional Tests Apley's Scratch Test Action 1- Left ant/lat opp shoulder Action 1- Right Post opp shoulder Action 2- Left C7 Action 2- Right T2 Action 3- Left T12 Action 3- Right T8 PT-OP-J Posture/Palpation/Skin Start: 02/13/19 12:58 Freq: Status: Active Protocol: Document 02/13/19 15:15 EA (Rec: 02/14/19 07:29 EA [id number]) Posture Evaluation Position Standing Evaluation View post/lat Comments Posture Comments Fwd head, rounded shoulders, elev left shoulder. Prominent left scap blade PT-OP-K Range of Motion Start: 02/13/19 12:58 Freq: Status: Active Protocol: Document 02/13/19 15:15 EA (Rec: 02/14/19 07:29 EA [id number]) Shoulder Goniometric Range of Motion Shoulder Right Active Shoulder ROM WFL Yes Left Active Testing Position Sitting Flexion 150 Extension 60 Abduction 150 External Rotation at 90 degrees 70 Abduction Internal Rotation 40 PT-OP-L Special Tests Start: 02/13/19 12:58 Freq: Status: Active Protocol: Document 02/13/19 15:15 EA (Rec: 02/14/19 08:42 EA [id number]) Special Tests Cervical Spine Special Tests Foraminal Compression Test Results - Shoulder Special Tests Clunk Test Test Results unable to perform due to pain Empty Can Test Results + Yergason's Biceps Test Results - Lift-Off Rotator Cuff Test Results + Posterior Impingement Test Results + Youssef Kwadwo Impingement Test Results + Elevation Impingement Test Results + Belly Press Test Results sensitive PT-OP-M Strength Start: 02/13/19 12:58 Freq: Status: Active Protocol: Document 02/13/19 15:15 EA (Rec: 02/14/19 08:42 EA [id number]) Shoulder Strength Shoulder Manual Muscle Testing Left Flexion 4- Good- Extension 4- Good- Abduction (C5) 3+ Fair+ Adduction 4 Good External Rotation 4- Good- Internal Rotation 4- Good- Horizontal Abduction 4- Good- Comments Pain limits accuracy of the tests Right Reason Not Measured WFL Elbow/Forearm Strength Elbow and Forearm Manual Muscle Testing Left Reason Not Measured WFL PT-OP-Q Treatments Start: 02/13/19 12:58 Freq: Status: Active Protocol: Document 03/14/19 14:31 EA (Rec: 03/14/19 14:41 EA [id number]) Cardio Equipment Upper Body Ergometer (UBE) Duration (Minutes) 6 Seat Position 11 Height 4 Other as tolerated Therapeutic Exercises Prone Exercises 1 Prone Exercise Name T-ball: Y-T-I Resistance 1# Reps/Minutes x 10 reps Standing Exercises 9 Standing Exercise Name Wide row Resistance Lv 2 Reps/Minutes x 12 reps 5 Standing Exercise Name Shoulder Extension Side bilateral Resistance Lv 2 Equipment Used T-band 4 Standing Exercise Name Internal Rotation Side left Resistance Lv 1 Equipment Used T-band 3 Standing Exercise Name External Rotation Side left Resistance Lv 1 Equipment Used T-band 2 Standing Exercise Name DB soulder abd at 0-90 Resistance 1# Reps/Minutes x 12 reps 1 Standing Exercise Name DB Shoulder flexion Resistance 1# Reps/Minutes x 12 reps Manual Therapy Treatment Soft Tissue Mobilization 1 Body Location IS/SS/traps, SA, SS tendon Mobilization Type Cross-Friction Myofascial Release Rolling Intensity/Depth Moderate Body Position Hooklying PT-OP-R Modalities Start: 02/13/19 12:58 Freq: Status: Active Protocol: Document 03/14/19 14:31 EA (Rec: 03/14/19 14:41 EA [id number]) Electric Stimulation Electric Stimulation Interferential Current (IFC) Body Location L posterior shoulder Duration (Minutes) 15 Intensity 15 Patient Position Prone Combined With Heat/Cold Hot Pack Ultrasound Therapy Treatment Left Anterior Shoulder Treatment Duration (minutes) 5 Patient Position Supine Frequency Setting (mHz) 1 Mode Setting Continuous Intensity Setting (w/cm2) 1 PT-OP-T Assessment and Plan Start: 02/13/19 12:58 Freq: Status: Active Protocol: Document 03/14/19 14:31 EA (Rec: 03/14/19 14:41 EA [id number]) Physical Therapy Assessment Assessment Summary Assessment Improved exercises form with minimal discomfort during T- ball exercises. Overall patient is progressing well. Physical Therapy Plan Next Visit Focus/Plan Next Note Type Treatment Note Next Visit Plan Joint mob for ROM, modalities for pain, therapeutic exercises to ROM.
--- NOTE | 2019-03-18 17:02 | PT.OTN ---
Current Diagnoses Pain in left shoulder (03/18/19) Impingement syndrome of left shoulder (03/18/19) Strain of unspecified muscle, fascia and tendon at shoulder and upper arm level, left arm, subsequent encounter (03/18/19) Physical Therapy Treatment Note PT-OP-A Visit Information Start: 02/13/19 12:58 Freq: Status: Active Protocol: Document 03/18/19 13:49 EA (Rec: 03/18/19 13:52 EA [id number]) Out-Patient Physical Therapy Visit Information Visit Information Visit Type Treatment Note Visit Start Time 13:45 Visit Stop Time 14:38 Total Visit Minutes 53 Visit Number 8 PT-OP-B Current Condition Start: 02/13/19 12:58 Freq: Status: Active Protocol: Document 02/13/19 15:15 EA (Rec: 02/14/19 07:29 EA [id number]) Current Condition History of Current Condition Onset Date January 2018 Current Complaints Left shoulder pain History of Current Condition Present condition started just before right wrist surgery in January 2018. Patient reports favoring right hand increased worked to left shoulder and incident where she uses left arm to lift pile of hutson and feels injured left shoulder on that occasion; states worked in the [employer] with active lifting, pulling and pushing requirement. Patient reports initially tolerated until pain intensified with overhead movement and even resting at night. Patient underwent MRI / X-rays as she stated and diagnosed to have labral tear with bone spurs. She was not able to go for PT treatment due to insurance issue from [employer]. 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 Prior Treatments and Tests Massage, acupuncture helps. MRI-Xrays last year Future Testing and Treatments Planned None identified Treatment Goals Patient/Caregiver Goals Patient would like to get back to PLOF Prior Functional Status Baseline Function- ADL's Independent Baseline Function- Mobility Independent Baseline Function- Gait No limitation Baseline Function- Work/School Work at [employer]: requires active lifting, pulling, pushing of hutson with no limitation prior to January 2018 Current Functional Impairments (Reported) Functional Limitations- ADL's Limited with ADL that requires overhead movement, pushing, lifting Functional Limitations- Mobility/Gait Indep Functional Limitations- Work/School 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 PT-OP-E Functional Tests Start: 02/13/19 12:58 Freq: Status: Active Protocol: Document 02/13/19 15:15 EA (Rec: 02/14/19 07:29 EA [id number]) Functional Tests Apley's Scratch Test Action 1- Left ant/lat opp shoulder Action 1- Right Post opp shoulder Action 2- Left C7 Action 2- Right T2 Action 3- Left T12 Action 3- Right T8 PT-OP-J Posture/Palpation/Skin Start: 02/13/19 12:58 Freq: Status: Active Protocol: Document 02/13/19 15:15 EA (Rec: 02/14/19 07:29 EA [id number]) Posture Evaluation Position Standing Evaluation View post/lat Comments Posture Comments Fwd head, rounded shoulders, elev left shoulder. Prominent left scap blade PT-OP-K Range of Motion Start: 02/13/19 12:58 Freq: Status: Active Protocol: Document 02/13/19 15:15 EA (Rec: 02/14/19 07:29 EA [id number]) Shoulder Goniometric Range of Motion Shoulder Right Active Shoulder ROM WFL Yes Left Active Testing Position Sitting Flexion 150 Extension 60 Abduction 150 External Rotation at 90 degrees 70 Abduction Internal Rotation 40 PT-OP-L Special Tests Start: 02/13/19 12:58 Freq: Status: Active Protocol: Document 02/13/19 15:15 EA (Rec: 02/14/19 08:42 EA [id number]) Special Tests Cervical Spine Special Tests Foraminal Compression Test Results - Shoulder Special Tests Clunk Test Test Results unable to perform due to pain Empty Can Test Results + Yergason's Biceps Test Results - Lift-Off Rotator Cuff Test Results + Posterior Impingement Test Results + Youssef Kwadwo Impingement Test Results + Elevation Impingement Test Results + Belly Press Test Results sensitive PT-OP-M Strength Start: 02/13/19 12:58 Freq: Status: Active Protocol: Document 02/13/19 15:15 EA (Rec: 02/14/19 08:42 EA [id number]) Shoulder Strength Shoulder Manual Muscle Testing Left Flexion 4- Good- Extension 4- Good- Abduction (C5) 3+ Fair+ Adduction 4 Good External Rotation 4- Good- Internal Rotation 4- Good- Horizontal Abduction 4- Good- Comments Pain limits accuracy of the tests Right Reason Not Measured WFL Elbow/Forearm Strength Elbow and Forearm Manual Muscle Testing Left Reason Not Measured WFL PT-OP-Q Treatments Start: 02/13/19 12:58 Freq: Status: Active Protocol: Document 03/18/19 15:56 EA (Rec: 03/18/19 16:00 EA [id number]) Cardio Equipment Upper Body Ergometer (UBE) Duration (Minutes) 6 Seat Position 11 Height 4 Gym Equipment Cable Column (Body Solid) Rows Details 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 it 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 Resistance 20# Reps/Time x15 reps x 2 sets Lat Pull Down Details Close it 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 Resistance 20# Reps/Time x 15 reps x 2 sets Therapeutic Exercises Prone Exercises 1 Prone Exercise Name T-ball: Y-T-I Resistance 1-2# Reps/Minutes x 15 x 2 reps Standing Exercises 5 Standing Exercise Name Shoulder Extension Side bilateral Resistance Lv 2 Equipment Used T-band 4 Standing Exercise Name Internal Rotation Side left Resistance Lv 1-2 Equipment Used T-band Reps/Minutes x 12 reps x 2 3 Standing Exercise Name External Rotation Side left Resistance Lv 1-2 Equipment Used T-band Reps/Minutes x 12 reps x 2 2 Standing Exercise Name DB soulder abd at 0-90 Resistance 1-2# Reps/Minutes x 12reps x 2 1 Standing Exercise Name DB Shoulder flexion Resistance 1-2# Reps/Minutes x 12 reps x 2 sets Other Exercises 1 Other Exercise Name DB shoulder Resistance 1# Reps/Minutes 12 REPS X 2 Manual Therapy Treatment Soft Tissue Mobilization 1 Body Location IS/SS/traps, SA, SS tendon Mobilization Type Cross-Friction Myofascial Release Rolling Intensity/Depth Moderate Body Position Hooklying PT-OP-R Modalities Start: 02/13/19 12:58 Freq: Status: Active Protocol: Document 03/18/19 15:56 EA (Rec: 03/18/19 16:00 EA [id number]) Electric Stimulation Electric Stimulation Interferential Current (IFC) Body Location L posterior shoulder Duration (Minutes) 15 Intensity 15 Patient Position Prone Combined With Heat/Cold Hot Pack Ultrasound Therapy Treatment Left Anterior Shoulder Treatment Duration (minutes) 5 Patient Position Supine Frequency Setting (mHz) 1 Mode Setting Continuous Intensity Setting (w/cm2) 1 PT-OP-T Assessment and Plan Start: 02/13/19 12:58 Freq: Status: Active Protocol: Document 03/18/19 15:56 EA (Rec: 03/18/19 16:00 EA [id number]) Physical Therapy Assessment Assessment Summary Assessment Patient cont. to show increased exercises tolerance. Overall she is progressing well. Physical Therapy Plan Next Visit Focus/Plan Next Note Type Treatment Note Next Visit Plan Joint mob for ROM, modalities for pain, therapuetic exercises to ROM.
--- NOTE | 2019-03-21 14:48 | PT.OTN ---
Current Diagnoses Pain in left shoulder (03/21/19) Impingement syndrome of left shoulder (03/21/19) Strain of unspecified muscle, fascia and tendon at shoulder and upper arm level, left arm, subsequent encounter (03/21/19) Physical Therapy Treatment Note PT-OP-A Visit Information Start: 02/13/19 12:58 Freq: Status: Active Protocol: Document 03/21/19 14:33 EA (Rec: 03/21/19 14:48 EA [id number]) Out-Patient Physical Therapy Visit Information Visit Information Visit Type Treatment Note Visit Start Time 13:45 Visit Stop Time 14:40 Total Visit Minutes 55 Visit Number 9 PT-OP-B Current Condition Start: 02/13/19 12:58 Freq: Status: Active Protocol: Document 02/13/19 15:15 EA (Rec: 02/14/19 07:29 EA [id number]) Current Condition History of Current Condition Onset Date January 2018 Current Complaints Left shoulder pain History of Current Condition Present condition started just before right wrist surgery in January 2018. Patient reports favoring right hand increased worked to left shoulder and incident where she uses left arm to lift pile of hutson and feels injured left shoulder on that occasion; states worked in the [employer] with active lifting, pulling and pushing requirement. Patient reports initially tolerated until pain intensified with overhead movement and even resting at night. Patient underwent MRI / X-rays as she stated and diagnosed to have labral tear with bone spurs. She was not able to go for PT treatment due to insurance issue from [employer]. 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 Prior Treatments and Tests Massage, acupuncture helps. MRI-Xrays last year Future Testing and Treatments Planned None identified Treatment Goals Patient/Caregiver Goals Patient would like to get back to PLOF Prior Functional Status Baseline Function- ADL's Independent Baseline Function- Mobility Independent Baseline Function- Gait No limitation Baseline Function- Work/School Work at [employer]: requires active lifting, pulling, pushing of hutson with no limitation prior to January 2018 Current Functional Impairments (Reported) Functional Limitations- ADL's Limited with ADL that requires overhead movement, pushing, lifting Functional Limitations- Mobility/Gait Indep Functional Limitations- Work/School Active 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 PT-OP-E Functional Tests Start: 02/13/19 12:58 Freq: Status: Active Protocol: Document 02/13/19 15:15 EA (Rec: 02/14/19 07:29 EA [id number]) Functional Tests Apley's Scratch Test Action 1- Left ant/lat opp shoulder Action 1- Right Post opp shoulder Action 2- Left C7 Action 2- Right T2 Action 3- Left T12 Action 3- Right T8 PT-OP-J Posture/Palpation/Skin Start: 02/13/19 12:58 Freq: Status: Active Protocol: Document 02/13/19 15:15 EA (Rec: 02/14/19 07:29 EA [id number]) Posture Evaluation Position Standing Evaluation View post/lat Comments Posture Comments Fwd head, rounded shoulders, elev left shoulder. Prominent left scap blade PT-OP-K Range of Motion Start: 02/13/19 12:58 Freq: Status: Active Protocol: Document 02/13/19 15:15 EA (Rec: 02/14/19 07:29 EA [id number]) Shoulder Goniometric Range of Motion Shoulder Right Active Shoulder ROM WFL Yes Left Active Testing Position Sitting Flexion 150 Extension 60 Abduction 150 External Rotation at 90 degrees 70 Abduction Internal Rotation 40 PT-OP-L Special Tests Start: 02/13/19 12:58 Freq: Status: Active Protocol: Document 02/13/19 15:15 EA (Rec: 02/14/19 08:42 EA [id number]) Special Tests Cervical Spine Special Tests Foraminal Compression Test Results - Shoulder Special Tests Clunk Test Test Results unable to perform due to pain Empty Can Test Results + Yergason's Biceps Test Results - Lift-Off Rotator Cuff Test Results + Posterior Impingement Test Results + Youssef Kwadwo Impingement Test Results + Elevation Impingement Test Results + Belly Press Test Results sensitive PT-OP-M Strength Start: 02/13/19 12:58 Freq: Status: Active Protocol: Document 02/13/19 15:15 EA (Rec: 02/14/19 08:42 EA [id number]) Shoulder Strength Shoulder Manual Muscle Testing Left Flexion 4- Good- Extension 4- Good- Abduction (C5) 3+ Fair+ Adduction 4 Good External Rotation 4- Good- Internal Rotation 4- Good- Horizontal Abduction 4- Good- Comments Pain limits accuracy of the tests Right Reason Not Measured WFL Elbow/Forearm Strength Elbow and Forearm Manual Muscle Testing Left Reason Not Measured WFL PT-OP-Q Treatments Start: 02/13/19 12:58 Freq: Status: Active Protocol: Document 03/21/19 14:33 EA (Rec: 03/21/19 14:48 EA [id number]) Cardio Equipment Upper Body Ergometer (UBE) Duration (Minutes) 6 Seat Position 11 Height 5 Gym Equipment Cable Column (Body Solid) 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 Resistance 20-30# Reps/Time x15 reps x 2 sets Lat Pull Down 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 Resistance 20-30# Reps/Time x 15 reps x 2 sets Therapeutic Exercises Prone Exercises 1 Prone Exercise Name T-ball: Y-T-I Resistance 1-2# Reps/Minutes x 15 x 2 reps Sidelying Exercises 2 Sidelying Exercise Name Horiz abduction Side left Resistance 1# Reps/Minutes x 15 reps Standing Exercises 5 Standing Exercise Name Shoulder Extension Side bilateral Resistance Lv 3 Equipment Used T-band 4 Standing Exercise Name Internal Rotation Side left Resistance Lv 1-2 Equipment Used T-band Reps/Minutes x 12 reps x 2 3 Standing Exercise Name External Rotation Side left Resistance Lv 1-2 Equipment Used T-band Reps/Minutes x 12 reps x 2 2 Standing Exercise Name DB soulder abd at 0-90 Resistance 1-3# Reps/Minutes x 12reps x 2 1 Standing Exercise Name DB Shoulder flexion Resistance 1-2# Reps/Minutes x 12 reps x 2 sets Other Exercises 2 Other Exercise Name wall slides: flexion, V Equipment Used 1#AW Reps/Minutes x12 reps x 2 sets 1 Reps/Minutes 12 REPS X 2 Manual Therapy Treatment Soft Tissue Mobilization 1 Body Location IS/SS/traps, SA, SS tendon Mobilization Type Cross-Friction Myofascial Release Rolling Intensity/Depth Moderate Body Position Hooklying PT-OP-R Modalities Start: 02/13/19 12:58 Freq: Status: Active Protocol: Document 03/21/19 14:33 EA (Rec: 03/21/19 14:48 EA [id number]) Electric Stimulation Electric Stimulation Interferential Current (IFC) Body Location L posterior shoulder Duration (Minutes) 15 Intensity 15 Patient Position Prone Combined With Heat/Cold Hot Pack PT-OP-T Assessment and Plan Start: 02/13/19 12:58 Freq: Status: Active Protocol: Document 03/21/19 14:33 EA (Rec: 03/21/19 14:48 EA [id number]) Physical Therapy Assessment Assessment Summary Assessment Patient performed therex with no signs of discomfort. Tender to palpate still noted at bicipital groove and anterior acromion process. Overall, patient is progress and will cont. to benefit with skilled PT. Physical Therapy Plan Next Visit Focus/Plan Next Note Type Treatment Note Next Visit Plan Advance as tolerated
--- NOTE | 2019-03-25 16:15 | PT.OTN ---
Current Diagnoses Pain in left shoulder (03/25/19) Impingement syndrome of left shoulder (03/25/19) Strain of unspecified muscle, fascia and tendon at shoulder and upper arm level, left arm, subsequent encounter (03/25/19) Physical Therapy Treatment Note PT-OP-A Visit Information Start: 02/13/19 12:58 Freq: Status: Active Protocol: Document 03/25/19 15:10 EA (Rec: 03/25/19 15:16 EA [id number]) Out-Patient Physical Therapy Visit Information Visit Information Visit Type Treatment Note Visit Start Time 13:45 Visit Stop Time 14:40 Total Visit Minutes 55 Visit Number 10 PT-OP-B Current Condition Start: 02/13/19 12:58 Freq: Status: Active Protocol: Document 02/13/19 15:15 EA (Rec: 02/14/19 07:29 EA [id number]) Current Condition History of Current Condition Onset Date January 2018 Current Complaints Left shoulder pain History of Current Condition Present condition started just before right wrist surgery in January 2018. Patient reports favoring right hand increased worked to left shoulder and incident where she uses left arm to lift pile of hutson and feels injured left shoulder on that occasion; states worked in the [employer] with active lifting, pulling and pushing requirement. Patient reports initially tolerated until pain intensified with overhead movement and even resting at night. Patient underwent MRI / X-rays as she stated and diagnosed to have labral tear with bone spurs. She was not able to go for PT treatment due to insurance issue from [employer]. 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 Prior Treatments and Tests Massage, acupuncture helps. MRI-Xrays last year Future Testing and Treatments Planned None identified Treatment Goals Patient/Caregiver Goals Patient would like to get back to PLOF Prior Functional Status Baseline Function- ADL's Independent Baseline Function- Mobility Independent Baseline Function- Gait No limitation Baseline Function- Work/School Work at [employer]: requires active lifting, pulling, pushing of hutson with no limitation prior to January 2018 Current Functional Impairments (Reported) Functional Limitations- ADL's Limited with ADL that requires overhead movement, pushing, lifting Functional Limitations- Mobility/Gait Indep Functional Limitations- Work/School 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 She reports currently doing her previous job which requires lifting and carrying. Patient Reported Progress Worse PT-OP-E Functional Tests Start: 02/13/19 12:58 Freq: Status: Active Protocol: Document 02/13/19 15:15 EA (Rec: 02/14/19 07:29 EA [id number]) Functional Tests Apley's Scratch Test Action 1- Left ant/lat opp shoulder Action 1- Right Post opp shoulder Action 2- Left C7 Action 2- Right T2 Action 3- Left T12 Action 3- Right T8 PT-OP-J Posture/Palpation/Skin Start: 02/13/19 12:58 Freq: Status: Active Protocol: Document 02/13/19 15:15 EA (Rec: 02/14/19 07:29 EA [id number]) Posture Evaluation Position Standing Evaluation View post/lat Comments Posture Comments Fwd head, rounded shoulders, elev left shoulder. Prominent left scap blade PT-OP-K Range of Motion Start: 02/13/19 12:58 Freq: Status: Active Protocol: Document 02/13/19 15:15 EA (Rec: 02/14/19 07:29 EA [id number]) Shoulder Goniometric Range of Motion Shoulder Right Active Shoulder ROM WFL Yes Left Active Testing Position Sitting Flexion 150 Extension 60 Abduction 150 External Rotation at 90 degrees 70 Abduction Internal Rotation 40 PT-OP-L Special Tests Start: 02/13/19 12:58 Freq: Status: Active Protocol: Document 02/13/19 15:15 EA (Rec: 02/14/19 08:42 EA [id number]) Special Tests Cervical Spine Special Tests Foraminal Compression Test Results - Shoulder Special Tests Clunk Test Test Results unable to perform due to pain Empty Can Test Results + Yergason's Biceps Test Results - Lift-Off Rotator Cuff Test Results + Posterior Impingement Test Results + Youssef Kwadwo Impingement Test Results + Elevation Impingement Test Results + Belly Press Test Results sensitive PT-OP-M Strength Start: 02/13/19 12:58 Freq: Status: Active Protocol: Document 02/13/19 15:15 EA (Rec: 02/14/19 08:42 EA [id number]) Shoulder Strength Shoulder Manual Muscle Testing Left Flexion 4- Good- Extension 4- Good- Abduction (C5) 3+ Fair+ Adduction 4 Good External Rotation 4- Good- Internal Rotation 4- Good- Horizontal Abduction 4- Good- Comments Pain limits accuracy of the tests Right Reason Not Measured WFL Elbow/Forearm Strength Elbow and Forearm Manual Muscle Testing Left Reason Not Measured WFL PT-OP-Q Treatments Start: 02/13/19 12:58 Freq: Status: Active Protocol: Document 03/25/19 15:10 EA (Rec: 03/25/19 15:16 EA [id number]) Gym Equipment Cable Column (Body Solid) Rows Details Close dixonac operator Resistance 20-30# Reps/Time x15 reps x 2 sets Lat Pull Down Details Close dixonac operator Resistance 20-30# Reps/Time x 15 reps x 2 sets Therapeutic Exercises Prone Exercises 1 Prone Exercise Name T-ball: Y-T-I Resistance 2-3# Reps/Minutes x 12 x 2 reps Sidelying Exercises 2 Sidelying Exercise Name Horiz abduction Side left Resistance 1# Reps/Minutes x 15 reps Standing Exercises 9 Standing Exercise Name Wide row Resistance Lv 2-3 Reps/Minutes x 12 reps x2 5 Standing Exercise Name Shoulder Extension Side bilateral Resistance Lv 3 Equipment Used T-band 4 Standing Exercise Name Internal Rotation Side left Resistance Lv 1-2 Equipment Used T-band Reps/Minutes x 12 reps x 2 3 Standing Exercise Name External Rotation Side left Resistance Lv 1-2 Equipment Used T-band Reps/Minutes x 12 reps x 2 2 Standing Exercise Name DB soulder abd at 0-90 Resistance 1-3# Reps/Minutes x 12reps x 2 1 Standing Exercise Name DB Shoulder flexion Resistance 1-2# Reps/Minutes x 12 reps x 2 sets Other Exercises 2 Other Exercise Name wall slides: flexion, V Equipment Used 1#AW Reps/Minutes x12 reps x 2 sets 1 Other Exercise Name DB shoulder Resistance 1# Reps/Minutes 12 REPS X 2 Manual Therapy Treatment Soft Tissue Mobilization 1 Body Location IS/SS/traps, SA, SS tendon Mobilization Type Cross-Friction Myofascial Release Rolling Intensity/Depth Moderate Body Position Hooklying Joint Mobilizations GH Joint Left GH Direction Inferior Grade II Body Position Sitting Manual Techniques Passive ROM Type Flexion, ER/IR, Circumduction Body Location Left GH Body Position Supine PT-OP-R Modalities Start: 02/13/19 12:58 Freq: Status: Active Protocol: Document 03/25/19 15:10 EA (Rec: 03/25/19 15:16 EA [id number]) Electric Stimulation Electric Stimulation Interferential Current (IFC) Body Location L posterior shoulder Duration (Minutes) 15 Intensity 15 Patient Position Prone Combined With Heat/Cold Hot Pack PT-OP-T Assessment and Plan Start: 02/13/19 12:58 Freq: Status: Active Protocol: Document 03/25/19 15:10 EA (Rec: 03/25/19 15:16 EA [id number]) Physical Therapy Assessment Assessment Summary Assessment Tolerated treatment with mild discomfort during overhead activities. Improvement is slow at this time. Physical Therapy Plan Next Visit Focus/Plan Next Note Type Treatment Note Next Visit Plan Advance as tolerated
--- NOTE | 2019-03-28 17:20 | PT.OTN ---
Current Diagnoses Pain in left shoulder (03/28/19) Impingement syndrome of left shoulder (03/28/19) Strain of unspecified muscle, fascia and tendon at shoulder and upper arm level, left arm, subsequent encounter (03/28/19) Physical Therapy Treatment Note PT-OP-A Visit Information Start: 02/13/19 12:58 Freq: Status: Active Protocol: Document 03/28/19 14:35 EA (Rec: 03/28/19 14:37 EA [id number]) Out-Patient Physical Therapy Visit Information Visit Information Visit Type Treatment Note Visit Start Time 13:45 Visit Stop Time 14:40 Total Visit Minutes 53 Visit Number 11 PT-OP-B Current Condition Start: 02/13/19 12:58 Freq: Status: Active Protocol: Document 02/13/19 15:15 EA (Rec: 02/14/19 07:29 EA [id number]) Current Condition History of Current Condition Onset Date January 2018 Current Complaints Left shoulder pain History of Current Condition Present condition started just before right wrist surgery in January 2018. Patient reports favoring right hand increased worked to left shoulder and incident where she uses left arm to lift pile of hutson and feels injured left shoulder on that occasion; states worked in the [employer] with active lifting, pulling and pushing requirement. Patient reports initially tolerated until pain intensified with overhead movement and even resting at night. Patient underwent MRI / X-rays as she stated and diagnosed to have labral tear with bone spurs. She was not able to go for PT treatment due to insurance issue from [employer]. 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 Prior Treatments and Tests Massage, acupuncture helps. MRI-Xrays last year Future Testing and Treatments Planned None identified Treatment Goals Patient/Caregiver Goals Patient would like to get back to PLOF Prior Functional Status Baseline Function- ADL's Independent Baseline Function- Mobility Independent Baseline Function- Gait No limitation Baseline Function- Work/School Work at [employer]: requires active lifting, pulling, pushing of hutson with no limitation prior to January 2018 Current Functional Impairments (Reported) Functional Limitations- ADL's Limited with ADL that requires overhead movement, pushing, lifting Functional Limitations- Mobility/Gait Indep Functional Limitations- Work/School 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 Patient Reported Progress Improving PT-OP-E Functional Tests Start: 02/13/19 12:58 Freq: Status: Active Protocol: Document 02/13/19 15:15 EA (Rec: 02/14/19 07:29 EA [id number]) Functional Tests Apley's Scratch Test Action 1- Left ant/lat opp shoulder Action 1- Right Post opp shoulder Action 2- Left C7 Action 2- Right T2 Action 3- Left T12 Action 3- Right T8 PT-OP-J Posture/Palpation/Skin Start: 02/13/19 12:58 Freq: Status: Active Protocol: Document 02/13/19 15:15 EA (Rec: 02/14/19 07:29 EA [id number]) Posture Evaluation Position Standing Evaluation View post/lat Comments Posture Comments Fwd head, rounded shoulders, elev left shoulder. Prominent left scap blade PT-OP-K Range of Motion Start: 02/13/19 12:58 Freq: Status: Active Protocol: Document 02/13/19 15:15 EA (Rec: 02/14/19 07:29 EA [id number]) Shoulder Goniometric Range of Motion Shoulder Right Active Shoulder ROM WFL Yes Left Active Testing Position Sitting Flexion 150 Extension 60 Abduction 150 External Rotation at 90 degrees 70 Abduction Internal Rotation 40 PT-OP-L Special Tests Start: 02/13/19 12:58 Freq: Status: Active Protocol: Document 02/13/19 15:15 EA (Rec: 02/14/19 08:42 EA [id number]) Special Tests Cervical Spine Special Tests Foraminal Compression Test Results - Shoulder Special Tests Clunk Test Test Results unable to perform due to pain Empty Can Test Results + Yergason's Biceps Test Results - Lift-Off Rotator Cuff Test Results + Posterior Impingement Test Results + Youssef Kwadwo Impingement Test Results + Elevation Impingement Test Results + Belly Press Test Results sensitive PT-OP-M Strength Start: 02/13/19 12:58 Freq: Status: Active Protocol: Document 02/13/19 15:15 EA (Rec: 02/14/19 08:42 EA [id number]) Shoulder Strength Shoulder Manual Muscle Testing Left Flexion 4- Good- Extension 4- Good- Abduction (C5) 3+ Fair+ Adduction 4 Good External Rotation 4- Good- Internal Rotation 4- Good- Horizontal Abduction 4- Good- Comments Pain limits accuracy of the tests Right Reason Not Measured WFL Elbow/Forearm Strength Elbow and Forearm Manual Muscle Testing Left Reason Not Measured WFL PT-OP-Q Treatments Start: 02/13/19 12:58 Freq: Status: Active Protocol: Document 03/28/19 15:20 EA (Rec: 03/28/19 15:22 EA [id number]) Cardio Equipment Upper Body Ergometer (UBE) Duration (Minutes) 6 Seat Position 11 Height 5 Therapeutic Exercises Prone Exercises 1 Prone Exercise Name T-ball: Y-T-I Resistance 2-3# Reps/Minutes x 12 x 2 reps Sidelying Exercises 2 Sidelying Exercise Name Horiz abduction Side left Resistance 1# Reps/Minutes x 15 reps 1 Sidelying Exercise Name ABD Resistance 2# Reps/Minutes x 12 reps x 2 Manual Therapy Treatment Soft Tissue Mobilization 1 Body Location IS/SS/traps, SA, SS tendon Mobilization Type Cross-Friction Myofascial Release Rolling Intensity/Depth Moderate Body Position Hooklying Joint Mobilizations GH Joint Left GH Direction Inferior Grade II Body Position Sitting Manual Techniques Passive ROM Type Flexion, ER/IR, Circumduction Body Location Left GH Body Position Supine PT-OP-R Modalities Start: 02/13/19 12:58 Freq: Status: Active Protocol: Document 03/28/19 15:20 EA (Rec: 03/28/19 15:22 EA [id number]) Electric Stimulation Electric Stimulation Interferential Current (IFC) Body Location L posterior shoulder Duration (Minutes) 15 Intensity 15 Patient Position Prone Combined With Heat/Cold Hot Pack PT-OP-T Assessment and Plan Start: 02/13/19 12:58 Freq: Status: Active Protocol: Document 03/28/19 14:37 EA (Rec: 03/28/19 15:20 EA [id number]) Physical Therapy Assessment Assessment Summary Assessment Patient tolerated treatment well. ROM and strength shows minimal improvement. Physical Therapy Plan Next Visit Focus/Plan Next Note Type Treatment Note
--- NOTE | 2019-04-04 16:58 | PT.OTN ---
Current Diagnoses Pain in left shoulder (04/04/19) Impingement syndrome of left shoulder (04/04/19) Strain of unspecified muscle, fascia and tendon at shoulder and upper arm level, left arm, subsequent encounter (04/04/19) Physical Therapy Treatment Note PT-OP-A Visit Information Start: 02/13/19 12:58 Freq: Status: Active Protocol: Document 04/04/19 14:28 EA (Rec: 04/04/19 14:32 EA [id number]) Out-Patient Physical Therapy Visit Information Visit Information Visit Type Treatment Note Visit Start Time 13:45 Visit Stop Time 14:41 Total Visit Minutes 56 Visit Number 12 PT-OP-B Current Condition Start: 02/13/19 12:58 Freq: Status: Active Protocol: Document 02/13/19 15:15 EA (Rec: 02/14/19 07:29 EA [id number]) Current Condition History of Current Condition Onset Date January 2018 Current Complaints Left shoulder pain History of Current Condition Present condition started just before right wrist surgery in January 2018. Patient reports favoring right hand increased worked to left shoulder and incident where she uses left arm to lift pile of hutson and feels injured left shoulder on that occasion; states worked in the [employer] with active lifting, pulling and pushing requirement. Patient reports initially tolerated until pain intensified with overhead movement and even resting at night. Patient underwent MRI / X-rays as she stated and diagnosed to have labral tear with bone spurs. She was not able to go for PT treatment due to insurance issue from [employer]. 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 Prior Treatments and Tests Massage, acupuncture helps. MRI-Xrays last year Future Testing and Treatments Planned None identified Treatment Goals Patient/Caregiver Goals Patient would like to get back to PLOF Prior Functional Status Baseline Function- ADL's Independent Baseline Function- Mobility Independent Baseline Function- Gait No limitation Baseline Function- Work/School Work at [employer]: requires active lifting, pulling, pushing of hutson with no limitation prior to January 2018 Current Functional Impairments (Reported) Functional Limitations- ADL's Limited with ADL that requires overhead movement, pushing, lifting Functional Limitations- Mobility/Gait Indep Functional Limitations- Work/School Active 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 Patient Reported Progress Improving PT-OP-E Functional Tests Start: 02/13/19 12:58 Freq: Status: Active Protocol: Document 02/13/19 15:15 EA (Rec: 02/14/19 07:29 EA [id number]) Functional Tests Apley's Scratch Test Action 1- Left ant/lat opp shoulder Action 1- Right Post opp shoulder Action 2- Left C7 Action 2- Right T2 Action 3- Left T12 Action 3- Right T8 PT-OP-J Posture/Palpation/Skin Start: 02/13/19 12:58 Freq: Status: Active Protocol: Document 02/13/19 15:15 EA (Rec: 02/14/19 07:29 EA [id number]) Posture Evaluation Position Standing Evaluation View post/lat Comments Posture Comments Fwd head, rounded shoulders, elev left shoulder. Prominent left scap blade PT-OP-K Range of Motion Start: 02/13/19 12:58 Freq: Status: Active Protocol: Document 02/13/19 15:15 EA (Rec: 02/14/19 07:29 EA [id number]) Shoulder Goniometric Range of Motion Shoulder Right Active Shoulder ROM WFL Yes Left Active Testing Position Sitting Flexion 150 Extension 60 Abduction 150 External Rotation at 90 degrees 70 Abduction Internal Rotation 40 PT-OP-L Special Tests Start: 02/13/19 12:58 Freq: Status: Active Protocol: Document 02/13/19 15:15 EA (Rec: 02/14/19 08:42 EA [id number]) Special Tests Cervical Spine Special Tests Foraminal Compression Test Results - Shoulder Special Tests Clunk Test Test Results unable to perform due to pain Empty Can Test Results + Yergason's Biceps Test Results - Lift-Off Rotator Cuff Test Results + Posterior Impingement Test Results + Youssef Kwadwo Impingement Test Results + Elevation Impingement Test Results + Belly Press Test Results sensitive PT-OP-M Strength Start: 02/13/19 12:58 Freq: Status: Active Protocol: Document 02/13/19 15:15 EA (Rec: 02/14/19 08:42 EA [id number]) Shoulder Strength Shoulder Manual Muscle Testing Left Flexion 4- Good- Extension 4- Good- Abduction (C5) 3+ Fair+ Adduction 4 Good External Rotation 4- Good- Internal Rotation 4- Good- Horizontal Abduction 4- Good- Comments Pain limits accuracy of the tests Right Reason Not Measured WFL Elbow/Forearm Strength Elbow and Forearm Manual Muscle Testing Left Reason Not Measured WFL PT-OP-Q Treatments Start: 02/13/19 12:58 Freq: Status: Active Protocol: Document 04/04/19 14:28 EA (Rec: 04/04/19 14:32 EA [id number]) Cardio Equipment Upper Body Ergometer (UBE) Duration (Minutes) 6 Seat Position 11 Height 5 Therapeutic Exercises Prone Exercises 1 Prone Exercise Name T-ball: Y-T-I Resistance 2-3# Reps/Minutes x 12 x 2 reps Standing Exercises 9 Standing Exercise Name Wide row Resistance Lv 2-3 Reps/Minutes x 12 reps x2 8 Standing Exercise Name Single arm cable low row Equipment Used 20# Reps/Minutes x15 reps 5 Standing Exercise Name Shoulder Extension Side bilateral Resistance Lv 3 Equipment Used T-band 4 Standing Exercise Name Internal Rotation Side left Resistance Lv 1-2 Equipment Used T-band Reps/Minutes x 12 reps x 2 3 Standing Exercise Name External Rotation Side left Resistance Lv 1-2 Equipment Used T-band Reps/Minutes x 12 reps x 2 2 Standing Exercise Name DB soulder abd at 0-90 Resistance 1-3# Reps/Minutes x 12reps x 2 1 Standing Exercise Name DB Shoulder flexion Resistance 1-2# Reps/Minutes x 12 reps x 2 sets PT-OP-R Modalities Start: 02/13/19 12:58 Freq: Status: Active Protocol: Document 04/04/19 14:28 EA (Rec: 04/04/19 14:32 EA [id number]) Electric Stimulation Electric Stimulation Interferential Current (IFC) Body Location L posterior shoulder Duration (Minutes) 16 Intensity 15 Patient Position Prone Combined With Heat/Cold Hot Pack PT-OP-T Assessment and Plan Start: 02/13/19 12:58 Freq: Status: Active Protocol: Document 04/04/19 14:28 LAILA (Rec: 04/04/19 14:32 EA [id number]) Physical Therapy Assessment Assessment Summary Assessment Tolerated treatment well. Recommends to keep up with HEP and regular icing to shoulder . Physical Therapy Plan Next Visit Focus/Plan Next Note Type Treatment Note Next Visit Plan Progress as tolerated
--- NOTE | 2019-04-08 14:48 | PT.OTN ---
Current Diagnoses Pain in left shoulder (04/08/19) Impingement syndrome of left shoulder (04/08/19) Strain of unspecified muscle, fascia and tendon at shoulder and upper arm level, left arm, subsequent encounter (04/08/19) Physical Therapy Treatment Note PT-OP-A Visit Information Start: 02/13/19 12:58 Freq: Status: Active Protocol: Document 04/08/19 14:29 EA (Rec: 04/08/19 14:38 EA [id number]) Out-Patient Physical Therapy Visit Information Visit Information Visit Type Treatment Note Visit Start Time 13:50 Visit Stop Time 14:45 Total Visit Minutes 55 Visit Number 13 PT-OP-B Current Condition Start: 02/13/19 12:58 Freq: Status: Active Protocol: Document 02/13/19 15:15 EA (Rec: 02/14/19 07:29 EA [id number]) Current Condition History of Current Condition Onset Date January 2018 Current Complaints Left shoulder pain History of Current Condition Present condition started just before right wrist surgery in January 2018. Patient reports favoring right hand increased worked to left shoulder and incident where she uses left arm to lift pile of hutson and feels injured left shoulder on that occasion; states worked in the [employer] with active lifting, pulling and pushing requirement. Patient reports initially tolerated until pain intensified with overhead movement and even resting at night. Patient underwent MRI / X-rays as she stated and diagnosed to have labral tear with bone spurs. She was not able to go for PT treatment due to insurance issue from [employer]. 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 Prior Treatments and Tests Massage, acupuncture helps. MRI-Xrays last year Future Testing and Treatments Planned None identified Treatment Goals Patient/Caregiver Goals Patient would like to get back to PLOF Prior Functional Status Baseline Function- ADL's Independent Baseline Function- Mobility Independent Baseline Function- Gait No limitation Baseline Function- Work/School Work at [employer]: requires active lifting, pulling, pushing of hutson with no limitation prior to January 2018 Current Functional Impairments (Reported) Functional Limitations- ADL's Limited with ADL that requires overhead movement, pushing, lifting Functional Limitations- Mobility/Gait Indep Functional Limitations- Work/School 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 She mentioned that she will be seeing her referring physician tomorrow for follow up. PT-OP-E Functional Tests Start: 02/13/19 12:58 Freq: Status: Active Protocol: Document 02/13/19 15:15 EA (Rec: 02/14/19 07:29 EA [id number]) Functional Tests Apley's Scratch Test Action 1- Left ant/lat opp shoulder Action 1- Right Post opp shoulder Action 2- Left C7 Action 2- Right T2 Action 3- Left T12 Action 3- Right T8 PT-OP-J Posture/Palpation/Skin Start: 02/13/19 12:58 Freq: Status: Active Protocol: Document 02/13/19 15:15 EA (Rec: 02/14/19 07:29 EA [id number]) Posture Evaluation Position Standing Evaluation View post/lat Comments Posture Comments Fwd head, rounded shoulders, elev left shoulder. Prominent left scap blade PT-OP-K Range of Motion Start: 02/13/19 12:58 Freq: Status: Active Protocol: Document 02/13/19 15:15 EA (Rec: 02/14/19 07:29 EA [id number]) Shoulder Goniometric Range of Motion Shoulder Right Active Shoulder ROM WFL Yes Left Active Testing Position Sitting Flexion 150 Extension 60 Abduction 150 External Rotation at 90 degrees 70 Abduction Internal Rotation 40 PT-OP-L Special Tests Start: 02/13/19 12:58 Freq: Status: Active Protocol: Document 02/13/19 15:15 EA (Rec: 02/14/19 08:42 EA [id number]) Special Tests Cervical Spine Special Tests Foraminal Compression Test Results - Shoulder Special Tests Clunk Test Test Results unable to perform due to pain Empty Can Test Results + Yergason's Biceps Test Results - Lift-Off Rotator Cuff Test Results + Posterior Impingement Test Results + Yousesf Kwadwo Impingement Test Results + Elevation Impingement Test Results + Belly Press Test Results sensitive PT-OP-M Strength Start: 02/13/19 12:58 Freq: Status: Active Protocol: Document 02/13/19 15:15 EA (Rec: 02/14/19 08:42 EA [id number]) Shoulder Strength Shoulder Manual Muscle Testing Left Flexion 4- Good- Extension 4- Good- Abduction (C5) 3+ Fair+ Adduction 4 Good External Rotation 4- Good- Internal Rotation 4- Good- Horizontal Abduction 4- Good- Comments Pain limits accuracy of the tests Right Reason Not Measured WFL Elbow/Forearm Strength Elbow and Forearm Manual Muscle Testing Left Reason Not Measured WFL PT-OP-Q Treatments Start: 02/13/19 12:58 Freq: Status: Active Protocol: Document 04/08/19 14:29 EA (Rec: 04/08/19 14:38 EA [id number]) Cardio Equipment Upper Body Ergometer (UBE) Duration (Minutes) 6 Seat Position 11 Height 5 Gym Equipment Cable Column (Body Solid) Rows Details Close box repairer Resistance 20-30# Reps/Time x15 reps x 2 sets Lat Pull Down Details Close box repairer Resistance 20-30# Reps/Time x 15 reps x 2 sets Therapeutic Exercises Prone Exercises 1 Prone Exercise Name T-ball: Y-T-I Resistance 2-3# Reps/Minutes x 12 x 2 reps Sidelying Exercises 2 Sidelying Exercise Name Horiz abduction Side left Resistance 1# Reps/Minutes x 15 reps Standing Exercises 5 Standing Exercise Name Shoulder Extension Side bilateral Resistance Lv 3 Equipment Used T-band 4 Standing Exercise Name Internal Rotation Side left Resistance Lv 1-2 Equipment Used T-band Reps/Minutes x 12 reps x 2 2 Standing Exercise Name DB soulder abd at 0-90 Resistance 1-3# Reps/Minutes x 12reps x 2 1 Standing Exercise Name DB Shoulder flexion Resistance 1-2# Reps/Minutes x 12 reps x 2 sets Other Exercises 2 Other Exercise Name DB shoulder press Resistance 2# Reps/Minutes x 12 reps Manual Therapy Treatment Soft Tissue Mobilization 1 Body Location IS/SS/traps, SA, SS tendon Mobilization Type Cross-Friction Myofascial Release Rolling Intensity/Depth Moderate Body Position Hooklying Joint Mobilizations GH Joint Left GH Direction Inferior Grade II Body Position Sitting PT-OP-R Modalities Start: 02/13/19 12:58 Freq: Status: Active Protocol: Document 04/08/19 14:29 EA (Rec: 04/08/19 14:38 EA [id number]) Electric Stimulation Electric Stimulation Interferential Current (IFC) Body Location L posterior shoulder Duration (Minutes) 15 Intensity 15 Patient Position Prone Combined With Heat/Cold Hot Pack PT-OP-T Assessment and Plan Start: 02/13/19 12:58 Freq: Status: Active Protocol: Document 04/08/19 14:29 EA (Rec: 04/08/19 14:38 EA [id number]) Physical Therapy Assessment Assessment Summary Assessment Pt shows improved tolerance to shoulder resistance exercises with no discomfort noted except with prone t-ball exercises. Overhead lifting ability is also progressing well with no signs of shoulder substitution during overhead activities. Overall, patient is progressing okay. Physical Therapy Plan Next Visit Focus/Plan Next Note Type Treatment Note Next Visit Plan Functional shoulder exercises
--- NOTE | 2019-04-11 16:00 | PT.OTRE ---
Current Diagnoses Pain in left shoulder (04/11/19) Impingement syndrome of left shoulder (04/11/19) Strain of unspecified muscle, fascia and tendon at shoulder and upper arm level, left arm, subsequent encounter (04/11/19) Visit Care Team Role Provider Type Harlan Meade MD Primary Care Provider Physician Specialty: Internal Medicine Address: [address] [place] [address], [id number] Email: [email or web address] Sumit Charlton Attending Provider Non-Staff Specialty: Medical Address: [address] [place] [address], [id number] Email: Physical Therapy Re-Evaluation PT-OP-A Visit Information Start: 02/13/19 12:58 Freq: Status: Active Protocol: Document 04/11/19 13:00 SAK (Rec: 04/11/19 13:49 SAK [id number]) Out-Patient Physical Therapy Visit Information Visit Information Visit Type Treatment Note Visit Start Time 13:00 Visit Stop Time 13:55 Total Visit Minutes 55 Visit Number 14 PT-OP-B Current Condition Start: 02/13/19 12:58 Freq: Status: Active Protocol: Document 02/13/19 15:15 EA (Rec: 02/14/19 07:29 EA [id number]) Current Condition History of Current Condition Onset Date January 2018 Current Complaints Left shoulder pain History of Current Condition Present condition started just before right wrist surgery in January 2018. Patient reports favoring right hand increased worked to left shoulder and incident where she uses left arm to lift pile of hutson and feels injured left shoulder on that occasion; states worked in the [employer] with active lifting, pulling and pushing requirement. Patient reports initially tolerated until pain intensified with overhead movement and even resting at night. Patient underwent MRI / X-rays as she stated and diagnosed to have labral tear with bone spurs. She was not able to go for PT treatment due to insurance issue from [employer]. 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 Prior Treatments and Tests Massage, acupuncture helps. MRI-Xrays last year Future Testing and Treatments Planned None identified Treatment Goals Patient/Caregiver Goals Patient would like to get back to PLOF Prior Functional Status Baseline Function- ADL's Independent Baseline Function- Mobility Independent Baseline Function- Gait No limitation Baseline Function- Work/School Work at [employer]: requires active lifting, pulling, pushing of hutson with no limitation prior to January 2018 Current Functional Impairments (Reported) Functional Limitations- ADL's Limited with ADL that requires overhead movement, pushing, lifting Functional Limitations- Mobility/Gait Indep Functional Limitations- Work/School 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 Is noticing some pain in right shoulder recently due to compensation. PT-OP-E Functional Tests Start: 02/13/19 12:58 Freq: Status: Active Protocol: Document 02/13/19 15:15 EA (Rec: 02/14/19 07:29 EA [id number]) Functional Tests Apley's Scratch Test Action 1: The subject is instructed to touch the opposite shoulder with his/her hand. This motion checks Glenohumeral adduction, internal rotation , horizontal adduction and scapular protraction Action 2: The subject is instructed to place his/her arm overhead and reach behind the neck to touch his/her upper back. This motion checks Glenohumeral abduction, external rotation and scapular upward rotation and elevation. Action 3: The subject puts his/her hand on the lower back and reaches upward as far as possible. This motion checks glenohumeral adduction, internal rotation and scapular retraction with downward rotation Action 1- Left ant/lat opp shoulder Action 1- Right Post opp shoulder Action 2- Left C7 Action 2- Right T2 Action 3- Left T12 Action 3- Right T8 PT-OP-J Posture/Palpation/Skin Start: 02/13/19 12:58 Freq: Status: Active Protocol: Document 02/13/19 15:15 EA (Rec: 02/14/19 07:29 EA [id number]) Posture Evaluation Position Standing Evaluation View post/lat Comments Posture Comments Fwd head, rounded shoulders, elev left shoulder. Prominent left scap blade PT-OP-K Range of Motion Start: 02/13/19 12:58 Freq: Status: Active Protocol: Document 02/13/19 15:15 EA (Rec: 02/14/19 07:29 EA [id number]) Shoulder Goniometric Range of Motion Shoulder Measured in Degrees Right Active Shoulder ROM WFL Yes Left Active Testing Position Sitting Flexion 150 Extension 60 Abduction 150 External Rotation at 90 degrees 70 Abduction Internal Rotation 40 PT-OP-L Special Tests Start: 02/13/19 12:58 Freq: Status: Active Protocol: Document 02/13/19 15:15 EA (Rec: 02/14/19 08:42 EA [id number]) Special Tests Cervical Spine Special Tests Foraminal Compression Test Results - Shoulder Special Tests Clunk Test Test Results unable to perform due to pain Empty Can Test Results + Yergason's Biceps Test Results - Lift-Off Rotator Cuff Test Results + Posterior Impingement Test Results + Youssef Kwadwo Impingement Test Results + Elevation Impingement Test Results + Belly Press Test Results sensitive PT-OP-M Strength Start: 02/13/19 12:58 Freq: Status: Active Protocol: Document 02/13/19 15:15 EA (Rec: 02/14/19 08:42 EA [id number]) Shoulder Strength Shoulder Manual Muscle Testing Left Flexion 4- Good- Extension 4- Good- Abduction (C5) 3+ Fair+ Adduction 4 Good External Rotation 4- Good- Internal Rotation 4- Good- Horizontal Abduction 4- Good- Comments Pain limits accuracy of the tests Right Reason Not Measured WFL Elbow/Forearm Strength Elbow and Forearm Manual Muscle Testing Left Reason Not Measured WFL PT-OP-Q Treatments Start: 02/13/19 12:58 Freq: Status: Active Protocol: Document 04/11/19 13:00 SAK (Rec: 04/11/19 13:49 SAK [id number]) Cardio Equipment Upper Body Ergometer (UBE) Duration (Minutes) 6 Seat Position 11 Height 5 Therapeutic Exercises Supine Exercises shoulder flex stretch Reps/Minutes 5x pec stretch Reps/Minutes 2x30 Prone Exercises 1 Prone Exercise Name T-ball: Y-T-I Resistance 2-3# Reps/Minutes x 12 x 2 reps Standing Exercises wall posture Reps/Minutes 5x Manual Therapy Treatment Soft Tissue Mobilization periscapular musculature Mobilization Type Myofascial Release,Strumming Intensity/Depth Moderate Body Position Prone 1 Body Location IS/SS/traps, SA, SS tendon Mobilization Type Cross-Friction,Myofascial Release,Rolling Intensity/Depth Moderate Body Position Hooklying Joint Mobilizations thoracic PA's Joint [id number] Direction PA Grade II Body Position Prone GH Joint Left GH Direction Inferior Grade II Body Position Sitting PT-OP-R Modalities Start: 02/13/19 12:58 Freq: Status: Active Protocol: Document 04/11/19 13:00 [facility] (Rec: 04/11/19 13:49 [facility] [id number]) Electric Stimulation Electric Stimulation Interferential Current (IFC) Body Location L posterior shoulder Duration (Minutes) 15 Intensity 15 Patient Position Supine Combined With Heat/Cold Hot Pack PT-OP-T Assessment and Plan Start: 02/13/19 12:58 Freq: Status: Active Protocol: Document 04/11/19 13:00 [facility] (Rec: 04/11/19 13:49 [facility] [id number]) Physical Therapy Assessment Goals Four Impairment posture Nursing Manager Goal (LTG) Patient will exhibit near to normal posture to enhance shoulder functional mobility and prevent abnormal shoulder rhythmn. 04/11/19: goal progress LTG Duration 06/11/19 Three Impairment Impaired ROM Fpc Goal (LTG) Patient will exhibit full shoulder ABD/F/ ER/IR AROM to enhance functional shoulder mobility 04/11/19: goal progress LTG Duration 06/11/19 Two Impairment QuickDash 52 Fpc Goal (LTG) Quick Dash < 25 04/11/19: improving function, QuickDash not completed today, will do at next session. LTG Duration 06/11/[address]air[address] Fpc Goal (LTG) Patient will show independent in all HEP 04/11/19: good progress, though some increased pain noted today, some modifications to HEP, and ongoing progression as tolerated are indicated. LTG Duration 06/11/19 Assessment Summary Assessment Patient started session today with increased pain, treatment modified, patient instructed to ice more frequently as needed, increased emphasis on postural correction and UT stretching during the day. Fair tolerance for prone PA's and STM. Overall making progress toward goals but would benefit from further PT to help her fully achieve her goals and return to full UE function. Physical Therapy Plan Frequency and Duration Frequency of Treatment 2x/Week Duration of Treatment 8 wks Plan of Care Start Date 04/11/19 Plan of Care End Date 06/11/19 Next Visit Focus/Plan Next Note Type Treatment Note Next Visit Plan Resume more ther ex as patient tolerates per POC.
--- NOTE | 2019-04-11 16:00 | PT.OPPOC ---
Current Diagnoses Pain in left shoulder (04/11/19) Impingement syndrome of left shoulder (04/11/19) Strain of unspecified muscle, fascia and tendon at shoulder and upper arm level, left arm, subsequent encounter (04/11/19) Visit Care Team Role Provider Type Harlan Meade MD Primary Care Provider Physician Specialty: Internal Medicine Address: [address] [place] [address], [id number] Email: [email or web address] Sumit Charlton Attending Provider Non-Staff Specialty: Medical Address: [address] [place] [address], [id number] Email: Plan Of Care PT-OP-T Assessment and Plan Start: 02/13/19 12:58 Freq: Status: Active Protocol: Document 04/11/19 13:00 SAK (Rec: 04/11/19 13:49 SAK [id number]) Physical Therapy Assessment Goals Four Impairment posture Assisted Goal (LTG) Patient will exhibit near to normal posture to enhance shoulder functional mobility and prevent abnormal shoulder rhythmn. 04/11/19: goal progress LTG Duration 06/11/19 Three Impairment Impaired ROM Assisted Goal (LTG) Patient will exhibit full shoulder ABD/F/ ER/IR AROM to enhance functional shoulder mobility 04/11/19: goal progress LTG Duration 06/11/19 Two Impairment QuickDash 52 Pilot Safety Inspector Goal (LTG) Quick Dash < 25 04/11/19: improving function, QuickDash not completed today, will do at next session. LTG Duration 06/11/19 [address] Impair[address] HEP place Pilot Safety Inspector Goal (LTG) Patient will show independent in all HEP 04/11/19: good progress, though some increased pain noted today, some modifications to HEP, and ongoing progression as tolerated are indicated. LTG Duration 06/11/19 Assessment Summary Assessment Patient started session today with increased pain, treatment modified, patient instructed to ice more frequently as needed, increased emphasis on postural correction and UT stretching during the day. Fair tolerance for prone PA's and STM. Overall making progress toward goals but would benefit from further PT to help her fully achieve her goals and return to full UE function. Physical Therapy Plan Frequency and Duration Frequency of Treatment 2x/Week Duration of Treatment 8 wks Plan of Care Start Date 04/11/19 Plan of Care End Date 06/11/19 Next Visit Focus/Plan Next Note Type Treatment Note Next Visit Plan Resume more ther ex as patient tolerates per POC. Plan of Care Dates Plan of Care Start Date 04/11/19 Plan of Care End Date 06/11/19 Please Sign and Return: I have reviewed this Plan of Care and certify that the skilled therapy services above are required to meet the patient?s needs. Physician Signature Date Printed Name and Credentials Clinical Instructor Signature Printed Name and Credentials
--- NOTE | 2019-04-11 16:28 | PT.OTN ---
Current Diagnoses Pain in left shoulder (04/11/19) Impingement syndrome of left shoulder (04/11/19) Strain of unspecified muscle, fascia and tendon at shoulder and upper arm level, left arm, subsequent encounter (04/11/19) Physical Therapy Treatment Note PT-OP-A Visit Information Start: 02/13/19 12:58 Freq: Status: Active Protocol: Document 04/11/19 13:00 SAK (Rec: 04/11/19 13:49 SAK [id number]) Out-Patient Physical Therapy Visit Information Visit Information Visit Type Treatment Note Visit Start Time 13:00 Visit Stop Time 13:55 Total Visit Minutes 55 Visit Number 14 PT-OP-B Current Condition Start: 02/13/19 12:58 Freq: Status: Active Protocol: Document 02/13/19 15:15 EA (Rec: 02/14/19 07:29 EA [id number]) Current Condition History of Current Condition Onset Date January 2018 Current Complaints Left shoulder pain History of Current Condition Present condition started just before right wrist surgery in January 2018. Patient reports favoring right hand increased worked to left shoulder and incident where she uses left arm to lift pile of hutson and feels injured left shoulder on that occasion; states worked in the [employer] with active lifting, pulling and pushing requirement. Patient reports initially tolerated until pain intensified with overhead movement and even resting at night. Patient underwent MRI / X-rays as she stated and diagnosed to have labral tear with bone spurs. She was not able to go for PT treatment due to insurance issue from [employer]. 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 Prior Treatments and Tests Massage, acupuncture helps. MRI-Xrays last year Future Testing and Treatments Planned None identified Treatment Goals Patient/Caregiver Goals Patient would like to get back to PLOF Prior Functional Status Baseline Function- ADL's Independent Baseline Function- Mobility Independent Baseline Function- Gait No limitation Baseline Function- Work/School Work at [employer]: requires active lifting, pulling, pushing of hutson with no limitation prior to January 2018 Current Functional Impairments (Reported) Functional Limitations- ADL's Limited with ADL that requires overhead movement, pushing, lifting Functional Limitations- Mobility/Gait Indep Functional Limitations- Work/School Active 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 Is noticing some pain in right shoulder recently due to compensation. PT-OP-E Functional Tests Start: 02/13/19 12:58 Freq: Status: Active Protocol: Document 02/13/19 15:15 EA (Rec: 02/14/19 07:29 EA [id number]) Functional Tests Apley's Scratch Test Action 1- Left ant/lat opp shoulder Action 1- Right Post opp shoulder Action 2- Left C7 Action 2- Right T2 Action 3- Left T12 Action 3- Right T8 PT-OP-J Posture/Palpation/Skin Start: 02/13/19 12:58 Freq: Status: Active Protocol: Document 02/13/19 15:15 EA (Rec: 02/14/19 07:29 EA [id number]) Posture Evaluation Position Standing Evaluation View post/lat Comments Posture Comments Fwd head, rounded shoulders, elev left shoulder. Prominent left scap blade PT-OP-K Range of Motion Start: 02/13/19 12:58 Freq: Status: Active Protocol: Document 02/13/19 15:15 EA (Rec: 02/14/19 07:29 EA [id number]) Shoulder Goniometric Range of Motion Shoulder Right Active Shoulder ROM WFL Yes Left Active Testing Position Sitting Flexion 150 Extension 60 Abduction 150 External Rotation at 90 degrees 70 Abduction Internal Rotation 40 PT-OP-L Special Tests Start: 02/13/19 12:58 Freq: Status: Active Protocol: Document 02/13/19 15:15 EA (Rec: 02/14/19 08:42 EA [id number]) Special Tests Cervical Spine Special Tests Foraminal Compression Test Results - Shoulder Special Tests Clunk Test Test Results unable to perform due to pain Empty Can Test Results + Yergason's Biceps Test Results - Lift-Off Rotator Cuff Test Results + Posterior Impingement Test Results + Youssef Kwadwo Impingement Test Results + Elevation Impingement Test Results + Belly Press Test Results sensitive PT-OP-M Strength Start: 02/13/19 12:58 Freq: Status: Active Protocol: Document 02/13/19 15:15 EA (Rec: 02/14/19 08:42 EA [id number]) Shoulder Strength Shoulder Manual Muscle Testing Left Flexion 4- Good- Extension 4- Good- Abduction (C5) 3+ Fair+ Adduction 4 Good External Rotation 4- Good- Internal Rotation 4- Good- Horizontal Abduction 4- Good- Comments Pain limits accuracy of the tests Right Reason Not Measured WFL Elbow/Forearm Strength Elbow and Forearm Manual Muscle Testing Left Reason Not Measured WFL PT-OP-Q Treatments Start: 02/13/19 12:58 Freq: Status: Active Protocol: Document 04/11/19 13:00 [facility] (Rec: 04/11/19 13:49 [facility] [id number]) Cardio Equipment Upper Body Ergometer (UBE) Duration (Minutes) 6 Seat Position 11 Height 5 Therapeutic Exercises Supine Exercises shoulder flex stretch Reps/Minutes 5x pec stretch Reps/Minutes 2x30 Prone Exercises 1 Prone Exercise Name T-ball: Y-T-I Resistance 2-3# Reps/Minutes x 12 x 2 reps Standing Exercises wall posture Reps/Minutes 5x Manual Therapy Treatment Soft Tissue Mobilization periscapular musculature Mobilization Type Myofascial Release Strumming Intensity/Depth Moderate Body Position Prone 1 Body Location IS/SS/traps, SA, SS tendon Mobilization Type Cross-Friction Myofascial Release Rolling Intensity/Depth Moderate Body Position Hooklying Joint Mobilizations thoracic PA's Joint [id number] Direction PA Grade II Body Position Prone GH Joint Left GH Direction Inferior Grade II Body Position Sitting PT-OP-R Modalities Start: 02/13/19 12:58 Freq: Status: Active Protocol: Document 04/11/19 13:00 SAK (Rec: 04/11/19 13:49 SAK [id number]) Electric Stimulation Electric Stimulation Interferential Current (IFC) Body Location L posterior shoulder Duration (Minutes) 15 Intensity 15 Patient Position Supine Combined With Heat/Cold Hot Pack PT-OP-T Assessment and Plan Start: 02/13/19 12:58 Freq: Status: Active Protocol: Document 04/11/19 13:00 SAK (Rec: 04/11/19 13:49 [facility] [id number]) Physical Therapy Assessment Goals Four Impairment posture Usp Goal (LTG) Patient will exhibit near to normal posture to enhance shoulder functional mobility and prevent abnormal shoulder rhythmn. Three Impairment Impaired ROM Rabbit Fancier Goal (LTG) Patient will exhibit full shoulder ABD/F/ ER/IR AROM to enhance functional shoulder mobility LTG Duration 4 wks Two Impairment QuickDash 52 Usp Goal (LTG) Quick Dash < 25 LTG Duration 5 wks One Impairment No HEP place Usp Goal (LTG) Patient will show independent in all HEP LTG Duration 3 wks Assessment Summary Assessment Patient started session today with increased pain, treatment modified, patient instructed to ice more frequently as needed, increased emphasis on postural correction and UT stretching during the day. Fair tolerance for prone PA's and STM. Physical Therapy Plan Next Visit Focus/Plan Next Note Type Treatment Note Next Visit Plan Resume more ther ex as patient tolerates per POC.
== END 2019-04-12 12:35 ==
LOC: PHYS 13:00
PROVIDERS: PCP Internal Medicine; Visit Provider Orthopaedic Surgery
DX: M75.42 Impingement syndrome of left shoulder (principal); M25.512 Pain in left shoulder; S46.912D Strain of unspecified muscle, fascia and tendon at shoulder and upper arm level, left arm, subsequent encounter
CPT/HCPCS: 97014; 97035; 97110; 97140; 97161; 97535; G0283

== ENCOUNTER 2019-04-27 09:57 | Emergency (ER) | payer OTHER, SELFPAY ==
[2019-04-27 10:07] VITALS: BP 137/82; PULSE 60; RESP 14; TEMP 36.6; O2SAT 100
--- NOTE | 2019-04-27 10:18 | DI.RAD.S_ITS ---
PROCEDURE: XR CHEST 2V INDICATIONS: fall pain short of breath TECHNIQUE: 2 views of the chest were acquired. COMPARISON: None. FINDINGS: Surgical changes and devices: Is within the right upper cough and are suggestive of a previous cholecystectomy. Lungs and pleura: Lungs are clear. No pleural effusions or pneumothorax. Mediastinum: Mediastinal contours are normal. Heart size is normal. Bones and chest wall: No suspicious bony abnormalities. Soft tissues appear unremarkable. IMPRESSION: Negative chest. No acute cardiopulmonary process is evident. Dictated by: Shorty De Leon M.D. on 04/27/2019 at 9:37 Approved by: Shorty De Leon M.D. on 04/27/2019 at 9:38
--- NOTE | 2019-04-27 10:29 | ED.FALL ---
HPI - Fall General Chief Complaint: Fall Stated Complaint: fell landed on chest hard time breathing Time Seen by Provider: 04/27/19 10:08 Source: patient Mode of arrival: ambulatory Limitations: no limitations History of Present Illness HPI Narrative: Patient is a 53-year-old female who presents after mechanical ground level fall. She says she was moving the garbage cans the area where the grass meets the papers is on even she tripped and fell forward landing on her chest. She did hit her head but hit her chest 1st. No loss of consciousness she is not on any anti-platelet or anticoagulation medication. She has no neck pain no numbness or tingling. No extremity pain. She has been going to physical therapy for right labral tear. She complains mostly of anterior left-sided chest pain hurts every time she moves or breathes. She has not taken anything pain. No pelvic or back pain MD complaint: fall Onset (ago): minute(s) Fall from: standing Fall witnessed: yes, by family Place fall occurred: home Loss of consciousness: none Related Data Previous Rx's Medication Instructions Recorded hydrocodone-acetaminophen [Middle Bass] 1 tab PO Q6H PRN #10 tab 04/27/19 ondansetron HCl [Zofran] 4 mg PO Q8HR PRN #10 tab 04/27/19 Allergies Allergy/AdvReac Type Severity Reaction Status Date / Time codeine [CODEINE] Allergy Severe HEART Verified 09/26/18 08:18 RACING cefaclor [CEFACLOR] Allergy Mild RASH Verified 09/26/18 08:18 Sulfa (Sulfonamide Allergy Mild RASH Verified 09/26/18 08:18 Antibiotics) [SULFA (SULFONAMIDE ANTIBIOTICS)] Review of Systems Review of Systems Narrative: GENERAL: Denies chills,fever HEENT: Denies throat pain RESPIRATORY: Denies dyspnea, cough, wheezing CARDIOVASCULAR: See HPI GASTROINTESTINAL: Denies nausea, vomiting MUSCULOSKELETAL: See HPI SKIN: No rash, no laceration, no pruritus NEUROLOGIC: Denies weakness, dizziness, headache, numbness 8 point review of systems is negative except for those stated above and HPI Exam Initial Vital Signs Initial Vital Signs: Vital Signs Temperature 97.8 F 04/27/19 10:07 Pulse Rate 60 04/27/19 10:07 Respiratory Rate 14 04/27/19 10:07 Blood Pressure 137/82 04/27/19 10:07 Pulse Oximetry 100 04/27/19 10:07 GENERAL: Well-appearing, well-nourished and in no acute distress. HEENT: Head atraumatic no contusions no abrasions,EOMI, pupils reactive, face symmetric, moist mucous membranes NECK: No vertebral tenderness no step-offs full range of motion CARDIOVASCULAR: Regular rate and rhythm without murmurs, rubs or gallops. Tender to touch mid line and left upper ribs. No obvious bony deformities or contusions. RESPIRATORY: Breath sounds equal bilaterally, no wheezes rales or rhonchi. ABDOMEN: Soft, nontender. Normoactive bowel sounds all 4 quadrants. No guarding or rebound. EXTREMITIES: Normal range of motion, no clubbing or edema. Neurovascularly intact NEUROLOGICAL: Alert and oriented x4.Normal gait and speech. SKIN: Warm, dry, no laceration, no petechiae, no rashes or lesions. [facility] Medical History Patient denies significant medical history (Acute) Social History Smoking Status: Never smoker Social History Smoking Status: Never smoker Course Orders Ordered: ED Orders 04/27/19 10:18 XR chest 2V Stat Discontinued Medications Ketorolac Tromethamine (Toradol) 30 mg IM NOW ONE Stop: 04/27/19 10:19 Last Admin: 04/27/19 10:54 Dose: 30 mg Documented by: MYLES Vital Signs Vital signs: Vital Signs - 8 hr 04/27/19 10:07 04/27/19 11:50 Temperature 97.8 F Pulse Rate 60 61 Respiratory Rate 14 19 Blood Pressure 137/82 116/98 H Pulse Oximetry 100 97 MDM - Fall Imaging Data Chest x-ray: Radiologist's impression: PROCEDURE: XR CHEST 2V INDICATIONS: fall pain short of breath TECHNIQUE: 2 views of the chest were acquired. COMPARISON: None. FINDINGS: Surgical changes and devices: Is within the right upper cough and are suggestive of a previous cholecystectomy. Lungs and pleura: Lungs are clear. No pleural effusions or pneumothorax. Mediastinum: Mediastinal contours are normal. Heart size is normal. Bones and chest wall: No suspicious bony abnormalities. Soft tissues appear unremarkable. IMPRESSION: Negative chest. No acute cardiopulmonary process is evident. Dictated by: Shorty De Leon M.D. on 04/27/2019 at 9:37 MDM Narrative Medical decision making narrative: Patient has no pneumothorax or obvious fractured sternum or rib fracture. However did discuss with her that she might have some minor fractures just not noted on x-ray. He is given a shot of Toradol which does seem to help slightly. She states all pain medications make her nauseous she is given Middle Bass and Zofran if needed for worsening pain. Discussed warning signs of when to return to ED. At this time she has no headache or neck pain no further imaging required at this time Discharge Plan Departure Patient Disposition: Home Clinical Impression: Chest wall contusion Qualifiers: Encounter type: initial encounter Laterality: left Qualified Code(s): S20.212A - Contusion of left front wall of thorax, initial encounter Discharge Date/Time: 04/27/19 11:53 Instructions: Contusion Activity Restrictions/Additional Instructions: *You have been diagnosed with chest wall contusion *What to do: Ice, increase activity as tolerated *Continue to take medications as directed Middle Bass 1 tablet every 6 hours if needed for severe pain Ibuprofen 800 mg every 8 hours if needed for pain *Follow up with your primary care provider in 2-3 days *Return to ER if you should have increasing shortness of, increasing pain, or any new, worsening or concerning symptoms Prescriptions: New hydrocodone-acetaminophen [Middle Bass] 5-325 mg tablet 1 tab PO Q6H PRN (Reason: pain) Qty: 10 RF: 0 ondansetron HCl [Zofran] 4 mg tablet 4 mg PO Q8HR PRN (Reason: nausea and vomiting) Qty: 10 RF: 0 Referrals: Harlan Meade MD [Primary Care Provider] - Stand Alone Forms: Work Release Note
[2019-04-27] MEDS: KETOROLAC 60 MG/2 ML VIAL 30 MG IM (10:54)
[2019-04-27 11:50] VITALS: BP 116/98; PULSE 61; RESP 19; O2SAT 97
== END 2019-04-27 11:53 | disposition home or self-care (01) ==
PROVIDERS: Emergency Provider Emergency Medicine; PCP Internal Medicine
DX: S20.212A Contusion of left front wall of thorax, initial encounter (principal); W18.30XA Fall on same level, unspecified, initial encounter
CPT/HCPCS: 71046; 93005; 96372; 99282; 99283; 99284; J1885

== ENCOUNTER 2019-05-09 11:09 | Emergency (ER) | payer OTHER, SELFPAY ==
[2019-05-09 11:19] VITALS: BP 133/110; PULSE 81; RESP 20; TEMP 36.7; O2SAT 100; BMI 21.1
--- NOTE | 2019-05-09 11:22 | DI.RAD.S_ITS ---
PROCEDURE: XR CHEST 2V INDICATIONS: shortness of breath TECHNIQUE: 2 views of the chest were acquired. COMPARISON: [facility], , XR CHEST 2V, 04/27/2019, 10:20. FINDINGS: Surgical changes and devices: Cholecystectomy clips. Lungs and pleura: Lungs are clear. No pleural effusions or pneumothorax. Mediastinum: Mediastinal contours are normal. Heart size is normal. Bones and chest wall: No suspicious bony abnormalities. Soft tissues appear unremarkable. IMPRESSION: No acute pulmonary process. Dictated by: Chantal Elaine M.D. on 05/09/2019 at 11:51 Approved by: Chantal Elaine M.D. on 05/09/2019 at 11:53
[2019-05-09 12:13] LABS: Add Manual Diff / Slide Review NO; Basophils Absolute Auto 100 /uL (0-100); Basophils Percent Auto 1.3 % (0-2); Eosinophils Absolute Auto 100 /uL (0-450); Eosinophils Percent Auto 1.5 % (2-4); Hematocrit 37.3 % (36-46); Lymphocytes Absolute Auto 1900 /uL (1100-4500); Lymphocytes Percent Auto 42.7 % (25-40); Mean Corpuscular HGB Conc 34.8 % (30-36); Mean Corpuscular Volume 91.8 fL (80-100); Monocytes Absolute Auto 400 /uL (0-900); Monocytes Percent Auto 9.9 % (3-14); Neutrophils Absolute Auto 2000 /uL (1500-7000); Neutrophils Percent Auto 44.6 % (50-75); Platelet Count 259 X10^3/uL (150-400); Red Blood Cell Count 4.06 X10^6/uL (4.0-5.2); Red Cell Distribution Width 12.7 % (11.6-14.8); White Blood Cell Count 4.5 X10^3/uL (4.5-11.0)
[2019-05-09 12:19] LABS: INR 1.1 (0.9-1.3); Prothrombin Time 12.4 SECONDS (10.1-12.7)
[2019-05-09 12:22] VITALS: BP 124/99; PULSE 83; RESP 14; O2SAT 93
[2019-05-09 12:22] LABS: Alanine Aminotransferase 13 IU/L (9-52); Albumin 4.4 g/dL (3.5-5.0); Albumin Globulin Ratio 1.3 (1.0-2.8); Alkaline Phosphatase 89 U/L (38-126); Aspartate Aminotransferase 25 IU/L (14-36); BUN Creatinine Ratio 22.9 (6-22); Bilirubin Total 0.5 mg/dL (0.2-1.3); Blood Urea Nitrogen 16 mg/dL (7-17); Calcium 9.8 mg/dL (8.4-10.2); Carbon Dioxide 26 mmol/L (22-32); Chloride 106 mmol/L (98-107); Estimated Glomerular Filt Rate > 60.0 mL/min (>60); Globulin 3.5 g/dL (1.7-4.1); Glucose 89 mg/dL (70-100); HEMOLYSIS < 15 (0-50); Potassium 3.8 mmol/L (3.4-5.1); Sodium 142 mmol/L (137-145); Total Protein 7.9 g/dL (6.3-8.2)
[2019-05-09 13:16] VITALS: BP 127/82; PULSE 55; RESP 20; O2SAT 99
--- NOTE | 2019-05-09 13:24 | ED_ITS ---
HPI - SOB/Dyspnea General Chief Complaint: Shortness of Breath/Dyspnea Stated Complaint: fell last week,blood clots check Time Seen by Provider: 05/09/19 11:29 Source: patient Mode of arrival: Ambulatory Limitations: no limitations History of Present Illness HPI Narrative: Patient comes emergency department complaining of worsening pain in her right chest after trauma 3 weeks ago. Patient states she took a fall t hat she does not remember while at work. She thinks [place], and injured her right chest and shoulder. Patient was seen in the emergency department at that time, and worked up with imaging studies, which were negative. She was sent back to the emergency department today, because she since that injury, she has continued to have pain in her right chest and shoulder, and has now developed a persistent pain in her intrascapular area, which does not seem to be affected as much by movement as the anterior pain. Her primary care physician was concerned about possible PE. Patient has no history of swelling or pain in her lower extremities. She is not a smoker. She is post menopausal. The patient has no family history of DVT or PE. Patient states she feels mildly short of breath but mainly, but it hurts to take a deep breath. Related Data Home Medications Medication Instructions Recorded Confirmed acetaminophen [Tylenol] 650 mg PO PRN PRN 05/09/19 05/09/19 epinephrine [EpiPen] 0.3 mg IM PRN PRN 05/09/19 05/09/19 methocarbamol 750 mg PO Q4H PRN 05/09/19 05/09/19 Previous Rx's Medication Instructions Recorded ondansetron 4 mg PO Q6H PRN #14 tab 05/09/19 oxycodone-acetaminophen [Percocet] 1 tab PO Q4-6H PRN #10 tab 05/09/19 Allergies Allergy/AdvReac Type Severity Reaction Status Date / Time codeine [CODEINE] Allergy Severe HEART Verified 09/26/18 08:18 RACING cefaclor [CEFACLOR] Allergy Mild RASH Verified 09/26/18 08:18 Sulfa (Sulfonamide Allergy Mild RASH Verified 09/26/18 08:18 Antibiotics) [SULFA (SULFONAMIDE ANTIBIOTICS)] Review of Systems Review of Systems ROS Unobtainable: All systems reviewed & are unremarkable except as noted in HPI and below Constitutional Constitutional: Denies chills, Denies fatigue, Denies fever(s), Denies frequent falls, Denies lethargy and Denies weakness Eyes Eyes: Denies change in vision, Denies eye discharge, Denies irritation and Denies loss of vision ENT Ears, Nose, Mouth, and Throat: Denies change in voice, Denies dizziness, Denies neck pain, Denies sore throat and Denies throat swelling Cardiovascular Cardiovascular: Reports chest pain, Denies irregular heart rhythm, Denies lightheadedness, Denies palpitations, Reports dyspnea (Mild) and Denies orthopnea Respiratory Respiratory: Denies cough, Reports dyspnea (Mild) and Denies wheezing Gastrointestinal Gastrointestinal: Denies abdominal pain, Denies change in bowel habits, Denies diarrhea, Denies nausea and Denies vomiting Genitourinary Genitourinary: Denies hematuria, Denies flank pain, Denies urinary incontinence and Denies urinary urgency Musculoskeletal Musculoskeletal: Reports back pain, Denies muscle weakness, Denies neck pain, Denies numbness and Denies tingling Integumentary/Breasts Skin/Breast: Denies pruritus, Denies erythema, Denies rash and Denies wounds Neurologic Neurologic: Denies behavioral changes, Denies confusion, Denies dizziness, Denies frequent falls, Denies loss of vision, Denies numbness, Denies tingling and Denies weakness Psychiatric Psychiatric: Denies anxiety, Denies behavioral changes, Denies confusion, Denies depression, Denies homicidal ideation and Denies suicidal ideation Endocrine Endocrine: Denies fatigue, Denies flushing and Denies palpitations Hematologic/Lymphatic Hematologic/Lymphatic: Denies easy bruising Allergic/Immunologic Allergic/Immunologic: Denies urticaria, Denies throat swelling and Denies wheezing [facility] Medical History Patient denies significant medical history (Acute) Surgical History No pertinent past surgical history (Acute) Social History Smoking Status: Never smoker Social History Smoking Status: Never smoker Exam Initial Vital Signs Initial Vital Signs: Vital Signs Temperature 98.1 F 05/09/19 11:19 Pulse Rate 81 05/09/19 11:19 Respiratory Rate 20 05/09/19 11:19 Blood Pressure 133/110 H 05/09/19 11:19 Pulse Oximetry 100 05/09/19 11:19 Const General: cooperative and well developed Nutritional Appearance: well nourished Orientation: alert, awake, oriented x3 and not confused [facility] Head: normocephalic and atraumatic Ears: external ears normal and TM's normal bilaterally Nose: external nose normal and No nasal discharge Face and sinus: sinuses nontender, face symmetric, no sinus tenderness and No dry mucous membranes Mouth: oral mucosae normal and moist mucous membranes Teeth and gingiva: dentition normal Throat: tonsils normal and uvula midline Eyes General: appearance normal, both eyes and all related structures Eyelids: eyelids normal Conjunctivae: conjunctivae normal Sclera: sclerae normal Pupils: PERRL EOM: EOM intact bilaterally Neck Neck: normal visual inspection, trachea midline, No lymphadenopathy, No midline deformity and No JVD Lymphatic: No lymphedema Chest Chest: tenderness (Right superior anterior chest wall and anterior R shoulder) Resp Effort & Inspection: normal respiratory effort, able to speak in complete sentences, no respiratory distress and no use of accessory muscles Auscultation: clear to auscultation bilaterally, no rales, no rhonchi and no wheezes Cardio Rate: regular rate Rhythm: regular rhythm Heart Sounds: no click, no gallops, no murmurs and no rubs Pulses: normal peripheral pulses GI Inspection: non-distended Palpation: soft, no hepatosplenomegaly, No guarding, No pulsatile mass and No tender Auscultation: normal bowel sounds Back/Spine/Pelvis Back: No CVA tenderness Cervical Spine: cervical ROM normal and No pain with cervical ROM Thoracic/Lumbar Spine: thoracic and lumbar spine normal to inspection Skin General: no rashes or lesions noted, No jaundice and No petechiae Neuro General: alert, oriented x3, gait normal and no focal motor deficits Speech: speech normal Extrem General: full ROM, no clubbing, cyanosis or edema, no pedal edema and no calf tenderness Psych Appearance: well kempt Mental Status: mental status grossly normal Attitude: cooperative Thought Content: normal and suicidality Judgment: judgment good Course Course Course Narrative: Patient was worked up with labs, which were unremarkable. I felt that PE was less likely, but given the worsening intrascapular pain, I did decide to get a CTA of the chest to also look at the aorta. This is found to be unremarkable. I did explain to the patient that at this point, her pain seems to be musculoskeletal in nature. She will need to follow up with her primary care physician to determine how to manage the pain at, as she is over 3 weeks out from her original fall. We have discussed home management of symptoms, as well as the usual indications for return. Orders Ordered: ED Orders 05/09/19 11:22 XR chest 2V Stat EKG-12 Lead Stat 05/09/19 12:05 Complete Blood Count AUTO DIFF Stat Comprehensive Metabolic Panel Stat Prothrombin Time INR Stat 05/09/19 13:24 CT angio chest PE protocol Stat Discontinued Medications Ketorolac Tromethamine (Toradol) 30 mg INJ NOW ONE Stop: 05/09/19 14:35 Last Admin: 05/09/19 14:42 Dose: Not Given Documented by: JAMAL Ketorolac Tromethamine (Toradol) 30 mg IV NOW ONE Stop: 05/09/19 14:35 Last Admin: 05/09/19 14:41 Dose: 30 mg Documented by: JAMAL Vital Signs Vital signs: Vital Signs - 8 hr 05/09/19 12:22 05/09/19 13:16 05/09/19 14:51 Pulse Rate 83 55 L 65 Respiratory Rate 14 20 19 Blood Pressure Blood Pressure [Left Arm] 124/99 H 127/82 115/98 H Pulse Oximetry 93 99 100 05/09/19 14:54 Pulse Rate 53 L Respiratory Rate 16 Blood Pressure 115/98 H Blood Pressure [Left Arm] Pulse Oximetry 97 MDM - SOB/Dyspnea Medical Records Attestation: I reviewed the patient's medical records. Lab Data Attestation: I reviewed the patient's lab results. Result diagrams: 05/09/19 12:05 05/09/19 12:05 Labs: Lab Results 05/09/19 05/09/19 05/09/19 Range/Units 12:05 12:05 12:05 WBC 4.5 (4.5-11.0) X10^3/uL RBC 4.06 (4.0-5.2) X10^6/uL Hgb 13.0 (12.0-16.0) g/dL Hct 37.3 (36-46) % MCV 91.8 (80-100) fL MCH 32.0 (26-34) PG MCHC 34.8 (30-36) % RDW 12.7 (11.6-14.8) % Plt Count 259 (150-400) X10^3/uL Neut % (Auto) 44.6 L (50-75) % Lymph % (Auto) 42.7 H (25-40) % [place] % (Auto) 9.9 (3-14) % Eos % (Auto) 1.5 L (2-4) % Baso % (Auto) 1.3 (0-2) % Neut # (Auto) 2000 (5976-4470) /uL Lymph # (Auto) 1900 (2914-0829) /uL [place] # (Auto) 400 (0-900) /uL Eos # (Auto) 100 (0-450) /uL Baso # (Auto) 100 (0-100) /uL PT 12.4 (10.1-12.7) SECONDS INR 1.1 (0.9-1.3) Sodium 142 (137-145) mmol/L Potassium 3.8 (3.4-5.1) mmol/L Chloride 106 (98-107) mmol/L Carbon Dioxide 26 (22-32) mmol/L BUN 16 (7-17) mg/dL Creatinine 0.70 (0.52-1.04) mg/dL Estimated GFR > 60.0 (>60) mL/min BUN/Creatinine Ratio 22.9 H (6-22) Glucose 89 (70-100) mg/dL Calcium 9.8 (8.4-10.2) mg/dL Total Bilirubin 0.5 (0.2-1.3) mg/dL AST 25 (14-36) IU/L ALT 13 (9-52) IU/L Alkaline Phosphatase 89 (38-126) U/L Total Protein 7.9 (6.3-8.2) g/dL Albumin 4.4 (3.5-5.0) g/dL Globulin 3.5 (1.7-4.1) g/dL Albumin/Globulin Ratio 1.3 (1.0-2.8) Imaging Data Chest x-ray: Radiologist's impression: PROCEDURE: XR CHEST 2V INDICATIONS: shortness of breath TECHNIQUE: 2 views of the chest were acquired. COMPARISON: [facility], CR, XR CHEST 2V, 04/27/2019, 10:20. FINDINGS: Surgical changes and devices: Cholecystectomy clips. Lungs and pleura: Lungs are clear. No pleural effusions or pneumothorax. Mediastinum: Mediastinal contours are normal. Heart size is normal. Bones and chest wall: No suspicious bony abnormalities. Soft tissues appear unremarkable. IMPRESSION: No acute pulmonary process. Dictated by: Chantal Elaine M.D. on 05/09/2019 at 11:51 Approved by: Chantal Elaine M.D. on 05/09/2019 at 11:53 CT scan - chest: Radiologist's impression: PROCEDURE: CT ANGIO CHEST PE PROTOCOL INDICATIONS: chest pain, SOB TECHNIQUE: After the administration of intravenous contrast, 2 mm thick sections acquired from the pulmonary apices to the posterior costophrenic angles. 3-dimensional maximum intensity projection (MIP) coronal and sagittal reformats were then acquired through the thorax. For radiation dose reduction, the following was used: automated exposure control, adjustment of mA and/or kV according to patient size. COMPARISON: None. FINDINGS: Image quality: Excellent. Pulmonary arteries: Pulmonary arteries are normal in size, and demonstrate no intraluminal filling defects to suggest central pulmonary embolism. Lungs and pleura: No focal pulmonary consolidation is evident. No pleural effusions or pneumothorax. Central and peripheral airways are patent. There is no lung mass or definite pulmonary nodule. Mediastinum: Heart size is normal, without pericardial effusion. No mediastinal or hilar adenopathy. Thoracic aorta is normal in caliber and enhancement. Esophagus is normal in caliber, without hiatal hernia. Bones and chest wall: No suspicious bony lesions. Ribs and thoracic spine appear intact throughout. Age-appropriate degenerative changes of the thoracic spine are present. Minimal anterior wedging involving 2 vertebral bodies within the mid thoracic spine are likely chronic/degenerative. Thyroid gland is not enlarged or adequately evaluated. No axillary or supraclavicular adenopathy. Abdomen: Visualized upper abdominal solid organs appear normal in the early arterial phase of enhancement. IMPRESSION: 1. No evidence of pulmonary emboli. 2. No acute cardiopulmonary process is evident. No definite pneumonia. Dictated by: Shorty De Leon M.D. on 05/09/2019 at 13:08 Approved by: Shorty De Leon M.D. on 05/09/2019 at 13:13 ECG Data Attestation: I personally reviewed and interpreted this ECG as follows: (See below) Interpretation: Twelve lead EKG performed May 09, 2019 1132, as follows: Regular ventricular rhythm with a rate of 54 beats per minute SD interval 152 millisecond QRS duration 84 millisecond QTC interval 409 millisecond No ectopy No significant ST T wave changes Interpretation: Sinus bradycardia; no since acute ischemia; borderline EKG as interpreted by ED MD. Discharge Plan Departure Patient Disposition: Home Clinical Impression: Chest wall pain Discharge Date/Time: 05/09/19 14:59 Instructions: DI for Costochondritis Activity Restrictions/Additional Instructions: Your labs and CT scan of the chest look good. There is no evidence of an emergent or serious condition causing your pain. You will need to follow up with your doctor to manage ongoing symptoms. Prescriptions: New ondansetron 4 mg tablet,disintegrating 4 mg PO Q6H PRN (Reason: nausea and vomiting) Qty: 14 RF: 0 oxycodone-acetaminophen [Percocet] 5-325 mg tablet 1 tab PO Q4-6H PRN (Reason: pain) Qty: 10 RF: 0 No Action acetaminophen [Tylenol] 325 mg Tablet 650 mg PO PRN PRN (Reason: pain) RF: 0 epinephrine [EpiPen] 0.3 mg/0.3 mL Auto-Injector 0.3 mg IM PRN PRN (Reason: Allergic Reaction) RF: 0 methocarbamol 750 mg tablet 750 mg PO Q4H PRN (Reason: Muscle Spasm) RF: 0 Referrals: Harlan Meade MD [Primary Care Provider] -
[2019-05-09] MEDS: KETOROLAC 60 MG/2 ML VIAL 30 MG IV (14:41)
[2019-05-09 14:51] VITALS: BP 115/98; PULSE 65; RESP 19; O2SAT 100
[2019-05-09 14:54] VITALS: BP 115/98; PULSE 53; RESP 16; O2SAT 97
== END 2019-05-09 14:59 | disposition home or self-care (01) ==
PROVIDERS: Emergency Provider Emergency Medicine; PCP Internal Medicine
DX: R07.89 Other chest pain (principal); W19.XXXA Unspecified fall, initial encounter; Y99.0 Civilian activity done for income or pay
CPT/HCPCS: 36591; 71046; 71275; 80053; 85025; 85610; 93005; 96374; 99283; 99285; J1885

== ENCOUNTER → 2021-05-12 17:40 | Outpatient (CLI) | payer OTHER, SELFPAY ==
--- NOTE | 2021-05-12 17:42 | DI.MRI.S_ITS ---
PROCEDURE: MR SHOULDER RT WO CON INDICATIONS: Impingement syndrome of right shoulder TECHNIQUE: Noncontrast oblique coronal T2 fast spin echo with fat saturation, oblique sagittal T1 spin echo and T2 fast spin echo with fat saturation, axial T1 spin echo and T2 fast spin echo with fat saturation through the shoulder. COMPARISON: Outside Film, MR, MR SHOULDER RIGHT WITHOUT CONTRAST, 10/24/2019, 15:38. [facility], CR, XR SHOULDER 2+ VIEWS RIGHT, 04/08/2021, 15:33. FINDINGS: Image quality: Excellent. Rotator cuff: There is mild to moderate supraspinatus tendinosis with mild fraying of the articular sided fibers at the critical zone without a well-defined tear. The infraspinatus and teres minor tendons are intact. There is moderate subscapularis tendinosis. The rotator cuff musculature is normal in bulk. Bones and bursae: Chronic traction cystic changes and superimposed edema are seen at the posterosuperior humeral head, more prominent when compared to the MRI from 10/24/2019. Partial-thickness cartilage irregularity is seen in the central anterior glenoid. Mild to moderate degenerative changes are seen at the acromioclavicular joint with marginal osteophyte formation and mild subchondral cystic changes. There is trace subacromial/subdeltoid bursal fluid. There is also trace subcoracoid bursal fluid. No significant glenohumeral effusion is present. Capsule and soft tissues: There is mild irregularity of the superior labrum as well as the anterosuperior and posterior labrum that is suspicious for chronic nondisplaced tearing. There is mild tendinosis of the biceps long head tendon. There is effacement of the normal fat signal in the rotator interval. The anterior band of the inferior glenohumeral ligament appears mildly thickened and hyperintense. IMPRESSION: 1. Mild to moderate supraspinatus tendinosis with low-grade articular sided fraying but no significant rotator cuff tendon tear. 2. Moderate subscapularis tendinosis. 3. Mild tendinosis of the biceps long head tendon. 4. Chronic appearing nondisplaced tearing of the superior labrum extending to the anterosuperior and posterior labrum. 5. 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 Trace subacromial/subdeltoid bursal effusion or bursitis. 6. Partial effacement of the rotator interval fat and mild thickening of the inferior glenohumeral ligament are nonspecific, but can be seen in the setting of the clinical syndrome of adhesive capsulitis. Dictated by: Jong Coleman M.D. on 05/13/2021 at 9:34 Approved by: Jong Coleman M.D. on 05/13/2021 at 9:55
== END ==
PROVIDERS: PCP Internal Medicine; Referring Provider Orthopaedic Surgery; Visit Provider Orthopaedic Surgery
DX: M75.41 Impingement syndrome of right shoulder (principal); S43.431A Superior glenoid labrum lesion of right shoulder, initial encounter; M19.011 Primary osteoarthritis, right shoulder
CPT/HCPCS: 73221

== ENCOUNTER 2021-12-02 15:35 | Emergency (ER) | payer OTHER, SELFPAY ==
[2021-12-02 15:43] VITALS: BP 146/67; PULSE 70; RESP 12; TEMP 36.8; O2SAT 98; BMI 21.9
--- NOTE | 2021-12-02 16:31 | DI.US.S_ITS ---
PROCEDURE: US ABDOMEN LIMITED INDICATIONS: LEFT UPPER ABDOMINAL WALL PAIN/PULSATION TECHNIQUE: Real-time focused scanning was performed of the abdomen, with image documentation. COMPARISON: None. FINDINGS: Liver is normal in size and echotexture. Gallbladder is surgically absent. Common bile duct measures 8.4 mm. Visualized pancreas is normal. Abdominal aorta measures 1.5 cm in diameter. No free fluid. IMPRESSION: Unremarkable limited abdominal aorta exam. Dictated by: Shen Best M.D. on 12/02/2021 at 18:05 Approved by: Shen Best M.D. on 12/02/2021 at 18:07
--- NOTE | 2021-12-02 16:34 | ED.ABDPAIN ---
HPI - Abdominal Pain <Patricia Delong [facility] - Last Filed: 12/02/21 18:56> General Chief Complaint: Abdominal Pain Stated Complaint: Pulsating in Center Abd, Nausea, Headache Time Seen by Provider: 12/02/21 16:14 Source: family Mode of arrival: Ambulatory History of Present Illness HPI narrative: This is otherwise healthy 56-year-old female history of cholecystectomy without any other medical history who presents to the emergency department complaining of 1-2 months of epigastric discomfort when she bends over ?like a pinched nerve or something ?. She states that yesterday she had a leg cramp, has felt nauseated, today was woke up by left upper abdominal pain which she feels like is her abdominal wall, it is tender to palpate, she states that it is pulsating like a muscle twitch, she denies any other abdominal pain, fever, vomiting, back pain, or other. She states that she has a headache today which is not significant for her, she took toe Tylenol which was helpful. She states that she has loose stool with fatty food, this happened yesterday, she has a friend that she saw recently who had nausea and vomiting with diarrhea episodes yesterday. She thinks it could be food poisoning, but this pain in her mid to left upper quadrant is worse today, she states it woke her up and has been worse than any other time. She denies any chest pain, diaphoresis, weakness, other muscle cramping or muscle spasms, denies any runny nose, cough, shortness of breath, wheezing, dysuria, flank pain, or symptom. She states she had breakfast today, she is COVID vaccinated x3 and had a negative COVID test at home. She has a twin sister, denies any history of GERD or heartburn. Patient was a previous patient of Dr. Meade, she states she would like to see him again if she could. 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 Related Data Home Medications Medication Instructions Recorded Confirmed acetaminophen 325 mg tablet 650 mg PO PRN PRN 05/09/19 05/09/19 (Tylenol) epinephrine 0.3 mg/0.3 mL 0.3 mg IM PRN PRN 05/09/19 05/09/19 injection, auto-injector (EpiPen) methocarbamol 750 mg tablet 750 mg PO Q4H PRN 05/09/19 05/09/19 Previous Rx's Medication Instructions Recorded ondansetron 4 mg disintegrating 4 mg PO Q6H PRN #14 tab 05/09/19 tablet oxycodone-acetaminophen 5 mg-325 1 tab PO Q4-6H PRN #10 tab 05/09/19 mg tablet (Percocet) lidocaine 5 % topical patch 1 patch TOPICAL DAILY #15 ea 12/02/21 (Lidoderm) methocarbamol 500 mg tablet 500 mg PO BEDTIME PRN #14 tab 12/02/21 omeprazole magnesium 20 mg 20 mg PO DAILY 14 Days #14 tab 12/02/21 tablet,delayed release Allergies Allergy/AdvReac Type Severity Reaction Status Date / Time codeine [CODEINE] Allergy Severe HEART Verified 12/02/21 17:08 RACING cefaclor [CEFACLOR] Allergy Mild RASH Verified 09/26/18 08:18 Sulfa (Sulfonamide Allergy Mild RASH Verified 09/26/18 08:18 Antibiotics) [SULFA (SULFONAMIDE ANTIBIOTICS)] Review of Systems <GUERITA Coates - Last Filed: 12/02/21 18:56> Review of Systems Narrative: General: denies fever, chills, malaise, sweats, fatigue Head/Neck: denies headache, neck pain, dizziness Eyes: denies visual changes, eye pain Cardio: denies chest pain, palpitations, edema Respiratory: denies dyspnea, cough, orthopnea GI: Endorses epigastric and left upper abdominal pain, muscle twitching or spasms of this area, with nausea, denies any vomiting, and states she had diarrhea yesterday. Denies any blood in her stool : denies dysuria, hematuria, urinary retention, frequency or incontinence MSK: denies joint pain, muscle weakness Skin: denies rash, itching, skin lesions or other Neuro: denies numbness, tingling Patient History <GUERITA Coates - Last Filed: 12/02/21 18:56> Medical History Patient denies significant medical history Surgical History No pertinent past surgical history Social History Smoking Status: Never smoker Smoking Status: Never smoker alcohol intake frequency: a few times a month Substance Use Type: does not use Exam <GUERITA Coates - Last Filed: 12/02/21 18:56> Narrative Exam Narrative: Independently reviewed vitals signs and nursing notes. General: cooperative, comfortable, in no acute distress, well developed and well groomed Head: atraumatic, symmetrical facial expressions Neck: supple, atraumatic, without lymphadenopathy. Eyes: pupils equal round and reactive, EOMI, conjunctiva normal Nose: nares patent, no rhinorrhea Mouth/Throat: uvula midline, moist mucus membranes Cardiovascular: regular rate and rhythm, no peripheral edema, warm extremities Respiratory: normal effort, able to speak in complete sentences, no audible wheezing, stridor, or rales. No retractions or tachypnea. GI: abdomen soft, left upper quadrant in her epigastrium is tender to palpation, she states that there is a bulging of this area, on my exam, it is nondistended, without masses, no exquisite tenderness with exam, without guarding or rebound. Bowel sounds are present x4 quadrants. MSK: moves all extremities, ambulatory w/steady gait, neurovascularly intact, no weakness Skin: brisk capillary refill, no rash, no erythema Neuro: normal speech and cognition, A&O x3, normal tone Psych: mental status is grossly normal, congruent mood, normal affect, pleasant and cooperative Initial Vital Signs Initial Vital Signs: Vital Signs Temperature 98.2 F 12/02/21 15:43 Pulse Rate 70 12/02/21 15:43 Respiratory Rate 12 12/02/21 15:43 Blood Pressure 146/67 H 12/02/21 15:43 Pulse Oximetry 98 12/02/21 15:43 <Sophy Harvey DO - Last Filed: 12/02/21 20:50> Initial Vital Signs Initial Vital Signs: Vital Signs Temperature 98.2 F 12/02/21 15:43 Pulse Rate 70 12/02/21 15:43 Respiratory Rate 12 12/02/21 15:43 Blood Pressure 146/67 H 12/02/21 15:43 Pulse Oximetry 98 12/02/21 15:43 Course <PACHECO CoatesP - Last Filed: 12/02/21 18:56> Orders Ordered: ED Orders 12/02/21 15:50 EKG-12 Lead Stat 12/02/21 16:31 US abdomen limited Stat 12/02/21 16:37 Complete Blood Count AUTO DIFF Stat Comprehensive Metabolic Panel Stat Lipase Stat MAG [Magnesium] Stat Troponin & CK Cardiac Panel Stat Discontinued Medications Ketorolac Tromethamine (Ketorolac 30 Mg/Ml Vial) 15 mg IV NOW ONE Stop: 12/02/21 17:48 Last Admin: 12/02/21 17:58 Dose: 15 mg Documented by: ATAYLOR Ondansetron HCl (Ondansetron 4 Mg/2 Ml Inj) 4 mg IV NOW ONE Stop: 12/02/21 17:50 Last Admin: 12/02/21 17:57 Dose: Not Given Documented by: ATAYLOR Pantoprazole Sodium (Pantoprazole 40 Mg Vial) 20 mg IV NOW ONE Stop: 12/02/21 17:50 Last Admin: 12/02/21 17:57 Dose: 20 mg Documented by: JAVIER Vital Signs Vital signs: Vital Signs - 8 hr 12/02/21 15:43 12/02/21 18:19 Temperature 98.2 F Pulse Rate 70 Respiratory Rate 12 Blood Pressure 146/67 H 151/84 H Pulse Oximetry 98 <Sophy Harvey DO - Last Filed: 12/02/21 20:50> Orders Ordered: ED Orders 12/02/21 15:50 EKG-12 Lead Stat 12/02/21 16:31 US abdomen limited Stat 12/02/21 16:37 Complete Blood Count AUTO DIFF Stat Comprehensive Metabolic Panel Stat Lipase Stat MAG [Magnesium] Stat Troponin & CK Cardiac Panel Stat Discontinued Medications Ketorolac Tromethamine (Ketorolac 30 Mg/Ml Vial) 15 mg IV NOW ONE Stop: 12/02/21 17:48 Last Admin: 12/02/21 17:58 Dose: 15 mg Documented by: ATAYLOR Ondansetron HCl (Ondansetron 4 Mg/2 Ml Inj) 4 mg IV NOW ONE Stop: 12/02/21 17:50 Last Admin: 12/02/21 17:57 Dose: Not Given Documented by: ATAYLOR Pantoprazole Sodium (Pantoprazole 40 Mg Vial) 20 mg IV NOW ONE Stop: 12/02/21 17:50 Last Admin: 12/02/21 17:57 Dose: 20 mg Documented by: ANDREZYLOR Vital Signs Vital signs: Vital Signs - 8 hr 12/02/21 15:43 12/02/21 18:19 Temperature 98.2 F Pulse Rate 70 Respiratory Rate 12 Blood Pressure 146/67 H 151/84 H Pulse Oximetry 98 MDM - Abdominal Pain <GUERITA Coates - Last Filed: 12/02/21 18:56> Lab Data Result diagrams: 12/02/21 16:37 12/02/21 16:37 Labs: Lab Results 12/02/21 12/02/21 12/02/21 Range/Units 16:37 16:37 16:37 WBC 6.1 (4.5-11.0) X10^3/uL RBC 3.98 L (4.0-5.2) X10^6/uL Hgb 12.8 (12.0-16.0) g/dL Hct 37.9 (36-46) % MCV 95.1 (80-100) fL MCH 32.1 (26-34) PG MCHC 33.7 (30-36) % RDW 13.4 (11.6-14.8) % Plt Count 268 (150-400) X10^3/uL Neut % (Auto) 58.3 (50-75) % Lymph % (Auto) 31.6 (25-40) % Daggett % (Auto) 9.0 (3-14) % Eos % (Auto) 0.6 L (2-4) % Baso % (Auto) 0.5 (0-2) % Neut # (Auto) 3600 (3073-5251) /uL Lymph # (Auto) 1900 (7487-8120) /uL Daggett # (Auto) 500 (0-900) /uL Eos # (Auto) 0 (0-450) /uL Baso # (Auto) 0 (0-100) /uL Sodium 141 (137-145) mmol/L Potassium 3.8 (3.4-5.1) mmol/L Chloride 108 H (98-107) mmol/L Carbon Dioxide 25 (22-32) mmol/L BUN 14 (7-17) mg/dL Creatinine 0.62 (0.52-1.04) mg/dL Estimated GFR > 60 (>60) mL/min BUN/Creatinine Ratio 22.6 H (6-22) Glucose 91 (70-100) mg/dL Calcium 9.2 (8.4-10.2) mg/dL Magnesium 1.9 (1.6-2.3) mg/dL Total Bilirubin 0.6 (0.2-1.3) mg/dL AST 29 (14-36) IU/L ALT 17 (<35) IU/L Alkaline Phosphatase 77 (38-126) U/L Total Creatine Kinase 74 (30-135) U/L CK-MB (CK-2) TNP CK-MB (CK-2) Rel Index TNP Troponin I < 0.012 (0.01-0.034) ng/mL Total Protein 7.8 (6.3-8.2) g/dL Albumin 4.4 (3.5-5.0) g/dL Globulin 3.4 (1.7-4.1) g/dL Albumin/Globulin Ratio 1.3 (1.0-2.8) Lipase 127 (23-300) U/L Point of care testing: Urine Dip Bedside Urine Glucose Negative Bedside Urine Bilirubin - Negative Bedside Urine Ketone - Negative Urine Specific [place] 1.015 Bedside Urine Occult Blood - Negative Bedside Urine pH 6 Bedside Urine Protein - Negative Bedside Urine Urobilinogen - Negative Bedside Urine Nitrite - Negative Bedside Urine Leukocytes - Negative Esterase Imaging Data US - abdomen: Radiologist's Impression: PROCEDURE: US ABDOMEN LIMITED ? INDICATIONS:? LEFT UPPER ABDOMINAL WALL PAIN/PULSATION ? TECHNIQUE:? Real-time focused scanning was performed of the abdomen, with image documentation.? ? COMPARISON:? None. ? FINDINGS:? Liver is normal in size and echotexture. Gallbladder is surgically absent. Common bile duct measures 8.4 mm. Visualized pancreas is normal. Abdominal aorta measures 1.5 cm in diameter.? No free fluid. ? IMPRESSION:? Unremarkable limited abdominal aorta exam. ? ? Dictated by: Shen Best M.D. on 12/02/2021 at 18:05 ? ? Approved by: Shen Best M.D. on 12/02/2021 at 18:07 ? ECG Data Interpretation: EKG independently reviewed by myself and Dr. Harvey which reveals normal sinus rhythm at [66] bpm with regular axis and intervals. No STEMI, ST segment changes, arrhythmia, or acute ischemic changes. MDM Narrative Medical decision making narrative: This is a 56-year-old female presents to the emergency department complaining of 2 months sensation of ?pinched nerve in her epigastrium ?when bending over, and today she states that she was woke up with epigastrium pain in this same area that she has had this sensation for the last 2 months. She denies any shortness of breath, chest pressure or pain, heartburn, difficulty breathing, diaphoresis, vomiting, constipation, endorses diarrhea occasionally as she has a history of cholecystectomy, when she eats fatty foods she has loose stool. Patient endorses a muscle cramp in her left leg yesterday, states she woke up with a headache, nausea, this abdominal pain and she does not know why. She came in complaining of pulsations in her abdomen, with a thorough abdominal exam, I did not appreciate any aortic bruit, enlargement, or abdominal distension. Ultrasound of abdomen and aortic evaluation was unremarkable, common bile duct measures 8.4 mm, pancreas appeared normal, no free fluid liver was normal in size and echotexture, gallbladder surgically absent. Lab work overall was unremarkable, no elevated lipase, take acidosis, leukocytosis, electrolyte abnormalities elevated liver enzymes, troponin was negative, CK negative, lipase is 127, T bili 0.6. This is most likely a abdominal muscle strain. Patient has tenderness to palpation over this area, no tenderness to abdominal quadrants, pelvis, or with deep palpation. Patient was given strict return precautions, gave her 2 weeks of omeprazole to take in case this may be gastritis or GERD. Patient denies the need for Zofran. She was given a phone number to establish primary care at [facility], states she would like a female provider. Patient understands to return if this is getting any worse or if she is unable to keep anything down or becomes febrile. No peritoneal signs on abdominal exam. Patient remains p.o. tolerant. Serial abdominal exam without increase in abdominal pain. Given history and exam, low suspicion for acute abdominal process, such as acute cholecystitis, pancreatitis, perforated viscus, atypical appendicitis, colitis, diverticulitis or torsion. Extensive conversation about ER return precautions and need for close follow-up. Patient is appropriate and amenable to discharge home. Vital signs are stable on repeat examination is unremarkable. Patient has been informed of results. Patient has been given strict return to ER precautions for any new or worsening symptoms. Patient understands to follow up closely with outpatient providers as instructed. Patient understands plan and agrees to discharge home. All questions and concerns answered at this time. <Sophy Harvey, DO - Last Filed: 12/02/21 20:50> Lab Data Labs: Lab Results 12/02/21 12/02/21 12/02/21 Range/Units 16:37 16:37 16:37 WBC 6.1 (4.5-11.0) X10^3/uL RBC 3.98 L (4.0-5.2) X10^6/uL Hgb 12.8 (12.0-16.0) g/dL Hct 37.9 (36-46) % MCV 95.1 (80-100) fL MCH 32.1 (26-34) PG MCHC 33.7 (30-36) % RDW 13.4 (11.6-14.8) % Plt Count 268 (150-400) X10^3/uL Neut % (Auto) 58.3 (50-75) % Lymph % (Auto) 31.6 (25-40) % [place] % (Auto) 9.0 (3-14) % Eos % (Auto) 0.6 L (2-4) % Baso % (Auto) 0.5 (0-2) % Neut # (Auto) 3600 (3771-8745) /uL Lymph # (Auto) 1900 (0843-1141) /uL [place] # (Auto) 500 (0-900) /uL Eos # (Auto) 0 (0-450) /uL Baso # (Auto) 0 (0-100) /uL Sodium 141 (137-145) mmol/L Potassium 3.8 (3.4-5.1) mmol/L Chloride 108 H (98-107) mmol/L Carbon Dioxide 25 (22-32) mmol/L BUN 14 (7-17) mg/dL Creatinine 0.62 (0.52-1.04) mg/dL Estimated GFR > 60 (>60) mL/min BUN/Creatinine Ratio 22.6 H (6-22) Glucose 91 (70-100) mg/dL Calcium 9.2 (8.4-10.2) mg/dL Magnesium 1.9 (1.6-2.3) mg/dL Total Bilirubin 0.6 (0.2-1.3) mg/dL AST 29 (14-36) IU/L ALT 17 (<35) IU/L Alkaline Phosphatase 77 (38-126) U/L Total Creatine Kinase 74 (30-135) U/L CK-MB (CK-2) TNP CK-MB (CK-2) Rel Index TNP Troponin I < 0.012 (0.01-0.034) ng/mL Total Protein 7.8 (6.3-8.2) g/dL Albumin 4.4 (3.5-5.0) g/dL Globulin 3.4 (1.7-4.1) g/dL Albumin/Globulin Ratio 1.3 (1.0-2.8) Lipase 127 (23-300) U/L Point of care testing: Urine Dip Bedside Urine Glucose Negative Bedside Urine Bilirubin - Negative Bedside Urine Ketone - Negative Urine Specific [place] 1.015 Bedside Urine Occult Blood - Negative Bedside Urine pH 6 Bedside Urine Protein - Negative Bedside Urine Urobilinogen - Negative Bedside Urine Nitrite - Negative Bedside Urine Leukocytes - Negative Esterase Discharge Plan Departure Patient Disposition: Home Clinical Impression: Epigastric abdominal pain Abdominal muscle strain Qualifiers: Encounter type: initial encounter Qualified Code(s): S39.011A - Strain of muscle, fascia and tendon of abdomen, initial encounter Instructions: DI for Gastroesophageal Reflux Disease (GERD), DI for Abdominal Muscle Strain, DI for Epigastric Pain Activity Restrictions/Additional Instructions: *You have been diagnosed with no abnormal findings on your lab work or your ultrasound today. Due to your tenderness to palpation, this is most likely a muscle strain or injury and will hopefully resolve soon. I recommend taking omeprazole daily for the next 1-2 weeks to see if this helps with any of the pain that you feel in this area. It might be some gastroesophageal reflux. I have given you some information about this to review, maybe this will help. Please schedule an appointment with Dr. Meade for follow-up. Your lab work overall is unremarkable without any signs of heart trouble, infection,, inflammation, electrolyte abnormality, kidney problem, your liver enzymes are normal, no signs of pancreatitis. Please feel reassured that this is most likely a soft tissue problem which might get better with topical medications. Please try Tylenol, heat, rest, take omeprazole daily for the next 1-2 weeks and see if there is any improvement. I have prescribed muscle relaxers for this probable muscle strain in your abdomen, please take them at night and try heat, rest, physical therapy, and topical medication to see if any of this helps. Go to your appointment tomorrow with Meghan. Thank you for trusting us with your care, I am sorry that I could not find out what this was for you, if anything is concerning or worsening, please return for another evaluation. *What to do: *Please continue to take your regular medications as directed. [ x] New medication prescriptions sent to your pharmacy: [[facility] ] [ ] New medication written as a paper prescription [ ] No new medications given *Please follow up with your primary care provider in 2-3 days, call for an appointment. Let them know you were seen in the Emergency Department and that we asked that you be seen for follow-up. We will electronically transmit a record of today's note if your PCP is in our system *If you do not have a primary care provider please contact [phone] to establish care with one of [facility] primary care providers. *Return to Emergency Department if you should have any new, worsening or concerning symptoms, such as [fever greater than 101F, chills, worsening pain, persistent vomiting or other bothersome symptoms] Prescriptions: New omeprazole magnesium 20 mg tablet,delayed release (DR/EC) 20 mg PO DAILY 14 Days Qty: 14 0RF methocarbamol 500 mg tablet 500 mg PO BEDTIME PRN (Reason: muscle pain) Qty: 14 0RF lidocaine [Lidoderm] 5 % adhesive patch,medicated 1 patch topical DAILY Qty: 15 0RF Rx Instructions: leave on most painful area for up to 12 hrs No Action acetaminophen [Tylenol] 325 mg Tablet 650 mg PO PRN PRN (Reason: pain) 0RF epinephrine [EpiPen] 0.3 mg/0.3 mL Auto-Injector 0.3 mg IM PRN PRN (Reason: Allergic Reaction) 0RF methocarbamol 750 mg tablet 750 mg PO Q4H PRN (Reason: Muscle Spasm) 0RF Label Comments: TAKE 1 TABLET BY MOUTH EVERY 4 HOURS FOR 7 DAYS ondansetron 4 mg tablet,disintegrating 4 mg PO Q6H PRN (Reason: nausea and vomiting) Qty: 14 0RF oxycodone-acetaminophen [Percocet] 5-325 mg tablet 1 tab PO Q4-6H PRN (Reason: pain) Qty: 10 0RF Referrals: Meghan Booker PA-C [Non-Staff] - Harlan Meade MD [Primary Care Provider] - <Sophy Harvey DO - Last Filed: 12/02/21 20:50> Cosign ED Attending Gloriaature Attestation: I was immediately available in the department for consultation. Documentation has been reviewed. I agree with assessment and plan.
[2021-12-02 16:45] LABS: Add Manual Diff / Slide Review NO; Basophils Absolute Auto 0 /uL (0-100); Basophils Percent Auto 0.5 % (0-2); Eosinophils Absolute Auto 0 /uL (0-450); Eosinophils Percent Auto 0.6 % (2-4); Hematocrit 37.9 % (36-46); Hemoglobin 12.8 g/dL (12.0-16.0); Lymphocytes Absolute Auto 1900 /uL (1100-4500); Lymphocytes Percent Auto 31.6 % (25-40); Mean Corpuscular HGB Conc 33.7 % (30-36); Mean Corpuscular Hemoglobin 32.1 PG (26-34); Mean Corpuscular Volume 95.1 fL (80-100); Monocytes Absolute Auto 500 /uL (0-900); Neutrophils Absolute Auto 3600 /uL (1500-7000); Neutrophils Percent Auto 58.3 % (50-75); Platelet Count 268 X10^3/uL (150-400); Red Blood Cell Count 3.98 X10^6/uL (4.0-5.2); Red Cell Distribution Width 13.4 % (11.6-14.8); White Blood Cell Count 6.1 X10^3/uL (4.5-11.0)
[2021-12-02 16:57] LABS: Creatine Kinase 74 U/L (30-135); Magnesium 1.9 mg/dL (1.6-2.3)
[2021-12-02 16:58] LABS: Alanine Aminotransferase 17 IU/L (<35); Albumin 4.4 g/dL (3.5-5.0); Albumin Globulin Ratio 1.3 (1.0-2.8); Alkaline Phosphatase 77 U/L (38-126); Aspartate Aminotransferase 29 IU/L (14-36); BUN Creatinine Ratio 22.6 (6-22); Bilirubin Total 0.6 mg/dL (0.2-1.3); Blood Urea Nitrogen 14 mg/dL (7-17); Calcium 9.2 mg/dL (8.4-10.2); Carbon Dioxide 25 mmol/L (22-32); Chloride 108 mmol/L (98-107); Estimated Glomerular Filt Rate > 60 mL/min (>60); Globulin 3.4 g/dL (1.7-4.1); Glucose 91 mg/dL (70-100); HEMOLYSIS < 15 (0-50); Lipase 127 U/L (23-300); Potassium 3.8 mmol/L (3.4-5.1); Sodium 141 mmol/L (137-145); Total Protein 7.8 g/dL (6.3-8.2)
[2021-12-02 17:10] LABS: Troponin I < 0.012 ng/mL (0.01-0.034)
[2021-12-02] MEDS: PANTOPRAZOLE 40 MG VIAL 20 MG IV (17:57)
[2021-12-02] MEDS: KETOROLAC 30 MG/ML VIAL 15 MG IV (17:58)
[2021-12-02 18:19] VITALS: BP 151/84
== END 2021-12-02 18:27 | disposition home or self-care (01) ==
PROVIDERS: Emergency Medicine; Emergency Provider Nurse Practitioner Critical Care Medicine; PCP Internal Medicine
DX: R10.13 Epigastric pain (principal); S39.011A Strain of muscle, fascia and tendon of abdomen, initial encounter; X58.XXXA Exposure to other specified factors, initial encounter
CPT/HCPCS: 36415; 76705; 80053; 81003; 82550; 83690; 83735; 84484; 85025; 93005; 93010; 96374; 96375; 99284; C9113; J1885

== ENCOUNTER → 2021-12-23 15:41 | Outpatient (CLI) | payer OTHER, SELFPAY ==
--- NOTE | 2021-12-23 | DI.MG.S_ITS ---
BILATERAL DIGITAL SCREENING MAMMOGRAM 3D/2D WITH CAD: 12/23/2021 CLINICAL: Routine screening. Family history of breast cancer. Comparison is made to exams dated: 09/11/2017 mammogram, 07/15/2015 mammogram - [facility], and 04/15/2009 mammogram - [facility]. There are scattered fibroglandular elements in both breasts. Current study was also evaluated with a Computer Aided Detection (CAD) system. No significant masses, calcifications, or other findings are seen in either breast. There has been no significant interval change. IMPRESSION: NEGATIVE There is no mammographic evidence of malignancy. A 1 year screening mammogram is recommended. This exam was interpreted at Station ID: [id number]. NOTE: For mammograms, a report in lay terms will be sent to the patient. Approximately 15% of breast malignancies will not be visualized mammographically. In the management of a palpable breast mass, a negative mammogram must not discourage biopsy of a clinically suspicious lesion. Electronically Signed By: Blake lewis/link:12/23/2021 16:08:39 letter sent: Normal Exam ACR BI-RADS Category 1: Negative [id number]
== END ==
PROVIDERS: PCP Student in an Organized Health Care Education/Training Program; Referring Provider Student in an Organized Health Care Education/Training Program; Visit Provider Student in an Organized Health Care Education/Training Program
DX: Z12.31 Encounter for screening mammogram for malignant neoplasm of breast (principal); Z80.3 Family history of malignant neoplasm of breast
CPT/HCPCS: 77063; 77067

== ENCOUNTER → 2022-01-11 14:45 | Outpatient (CLI) | payer OTHER, SELFPAY ==
--- NOTE | 2022-01-11 14:50 | DI.RAD.S_ITS ---
PROCEDURE: XR RIBS RT 2V INDICATIONS: CHEST PAIN BREATHING TECHNIQUE: 2 views of the right ribs were acquired. COMPARISON: None. FINDINGS: Surgical changes and devices: Cholecystectomy clips. Bones and chest wall: No fractures or dislocations. No suspicious bony lesions. Overlying soft tissues appear unremarkable. Lungs and pleura: The visualized lung appears clear. No pleural effusions or pneumothorax are visible. IMPRESSION: No displaced right rib fractures. Dictated by: Joaquin Mckeon RR Interpreted: Chantal Elaine MD on 01/11/2022 at 15:01 Transcribed by: BAKARI on 01/11/2022 at 15:02 Approved by: Chantal Elaine M.D. on 01/11/2022 at 17:28
--- NOTE | 2022-01-11 14:50 | DI.RAD.S_ITS ---
PROCEDURE: XR CHEST 2V INDICATIONS: CHEST PAIN BREATHING TECHNIQUE: 2 views of the chest were acquired. COMPARISON: [facility], CR, XR RIBS RT 2V, 01/11/2022, 14:40. [facility], CR, XR CHEST 2V, 05/09/2019, 11:24. FINDINGS: Surgical changes and devices: Cholecystectomy clips. Lungs and pleura: Lungs are clear. No pleural effusions or pneumothorax. Mediastinum: Mediastinal contours are normal. Heart size is normal. Bones and chest wall: No suspicious bony abnormalities. Soft tissues appear unremarkable. IMPRESSION: No acute cardiopulmonary disease. Dictated by: Joaquin Mckeon [facility] Interpreted: Chantal Elaine MD on 01/11/2022 at 15:02 Transcribed by: BAKARI on 01/11/2022 at 15:03 Approved by: Chantal Elaine M.D. on 01/11/2022 at 17:28
== END ==
PROVIDERS: PCP Student in an Organized Health Care Education/Training Program; Referring Provider Student in an Organized Health Care Education/Training Program; Visit Provider Student in an Organized Health Care Education/Training Program
DX: R07.1 Chest pain on breathing (principal)
CPT/HCPCS: 71046; 71100

== ENCOUNTER → 2022-01-26 14:20 | Outpatient (CLI) | payer OTHER, SELFPAY ==
[2022-01-26 15:50] LABS: COVID19 -Nasal RAPID Negative (Negative)
== END ==
PROVIDERS: PCP Student in an Organized Health Care Education/Training Program; Visit Provider Surgery
DX: Z01.812 Encounter for preprocedural laboratory examination (principal); Z20.822 Contact with and (suspected) exposure to COVID-19
CPT/HCPCS: 87635; C9803

== ENCOUNTER 2022-01-27 11:09 | Day surgery (SDC) | payer OTHER, SELFPAY ==
[2022-01-27] VITALS (9 sets, daily range): BP systolic 90–113; BP diastolic 60–79; PULSE 55–67; RESP 14–18; TEMP 36.2–37.1; O2SAT 96–100; BMI 25.3
--- NOTE | 2022-01-27 | PATH_ITS ---
[facility] Accession Number: [id number] . 01 Material submitted: . cecum - CECUM POLYP . 01 Diagnosis: Cecum, Polyp, Biopsy: Tubular adenoma. MRV 01/31/2022 1734 Local . 01 Electronically signed: . Patricia Badillo MD, Pathologist NPI- [id number] . 01 Gross description: . CECUM POLYP: Received in formalin are multiple fragment(s) of odonnell, soft tissue measuring 2.5 x 0.7 x 0.1 cm in aggregate submitted entirely in 1 cassette(s) /CPE 01/28/2022 0827 Local . 01 Pathologist provided ICD-10: D12.0 . 01 CPT . 596711 Performed at: 01 [facility] [address] [place] [address] [id number] MD Jose Cruz Puckett MD Phone: [phone]
[2022-01-27] MEDS: LACTATED RINGERS 1,000 ML 100 ML IV (12:24)
--- NOTE | 2022-01-27 12:24 | SUR.PREOP ---
01/27/22-1200pm- iv rt wrist started, infused, and then infiltrated. patient c/o nausea. skin moist. maintained alertness. cool compress to forehead,hob down, heart rate remains 60s/regular. on monitor. vss. ekg nsr. c/o numb/tiingling in hands-muscles twitching. very anxious. was very tense and nacho shoulders and muscles to prevent wretching/vomiting earlier. cool breeze to face. new iv started rt hand. fluid bolus given. felt better. hands returned to normal sensation as relaxed and encouraged to move/exercise fingers/hand. maintained on monitor. call abreu at side.
--- NOTE | 2022-01-27 13:09 | PM.HP.1 ---
History of Present Illness History of Present Illness Date Patient Seen: 01/27/22 Time Patient Seen: 13:09 Chief complaint: SDC Narrative: Ciara is a 56-year-old woman who has had 2 colonoscopies in past, the last was about 6 years ago. No polyps were found. A parent had colon cancer and . Patient History Medical History Patient denies significant medical history Surgical History No pertinent past surgical history Family & Social History Social History: household members spouse Tobacco & Substance use: Smoking Status Never smoker alcohol intake current alcohol intake frequency 0-2 drinks per day Substance Use Type marijuana Meds Home Medications and Allergies Home Medications Medication Instructions Recorded Confirmed Type acetaminophen 325 mg tablet 1,000 mg PO PRN PRN pain 05/09/19 01/27/22 History (Tylenol) epinephrine 0.3 mg/0.3 mL 0.3 mg IM PRN PRN Allergic Reaction 05/09/19 01/27/22 History injection, auto-injector (EpiPen) lidocaine 5 % topical patch 1 patch topical DAILY #15 ea 12/02/21 01/27/22 Rx (Lidoderm) escitalopram oxalate 10 mg tablet 10 tab DAILY 01/27/22 01/27/22 History Allergies Allergy/AdvReac Type Severity Reaction Status Date / Time codeine [CODEINE] Allergy Severe HEART Verified 01/27/22 11:34 RACING cefaclor [CEFACLOR] Allergy Mild RASH Verified 09/26/18 08:18 Sulfa (Sulfonamide Allergy Mild RASH Verified 09/26/18 08:18 Antibiotics) [SULFA (SULFONAMIDE ANTIBIOTICS)] Exam Vital Signs (past 8 hours): - 01/27/22 11:48 01/27/22 12:00 01/27/22 12:15 Temperature 98.7 F Pulse Rate 67 60 66 Respiratory Rate 16 14 18 Blood Pressure 113/79 100/60 106/62 Pulse Oximetry 96 97 100 Oxygen Delivery Method Room Air Room Air Nasal Cannula Oxygen Flow Rate 2 01/27/22 12:05 01/27/22 12:30 Temperature Pulse Rate 66 56 L Respiratory Rate 16 16 Blood Pressure 90/64 108/62 Pulse Oximetry 100 100 Oxygen Delivery Method Nasal Cannula Nasal Cannula Oxygen Flow Rate 2 2 Oxygen Delivery Method Nasal Cannula Oxygen Flow Rate 2 Const General: healthy appearing Resp Effort & Inspection: normal respiratory effort Assessment & Plan Assessment and plan (1) Family history of colon cancer: Status: Acute Plan 56-year-old woman with the first-degree relative family history of colon cancer is here for a colonoscopy. We reviewed the risks and benefits of the colonoscopy and she would like to proceed. COVID-19 COVID-19 status: Negative Result date/Date tested (Pos, Neg/Pending): 01/26/22 Time Spent With Patient Critical Care time: I spent a total of [] minutes of critical care time on this patient's care today; this time is exclusive of procedural time.
[2022-01-27] MEDS: fentaNYL 250 MCG/5 ML INJ 225 MCG IV (13:43)
[2022-01-27] MEDS: MIDAZOLAM 5 MG/5 ML VIAL 9 MG IV (13:43)
--- NOTE | 2022-01-27 14:07 | PM.OP.COLON ---
Operative Date/Time/Diagnoses Date of procedure: 01/27/22 Time of procedure: 14:07 Pre-op diagnosis: Family history of colon cancer Post-op diagnosis: same Procedure & Clinicians Study performed: Colonoscopy Same procedure as scheduled: Yes Surgeon: pS Villalba Procedure Notes Procedure in detail: Surgeon: Sp Villalba MD Procedure: The patient was brought to the endoscopy suite, placed in left lateral decubitus position. The patient was connected to monitoring devices. A time-out was performed. Sedation was administered. Once the patient was adequately sedated, a digital rectal exam was performed and was normal. The scope was then inserted and advanced to the cecum where the appendiceal orifice was identified and photographed. There was a sessile polyp in the cecum adjacent to the appendiceal orifice measuring roughly 2-3 cm. We performed a saline lift to elevate the polyp then proceeded to remove the polyp piecemeal using the 10 mm and 25 mm snares with cautery. The Jumbo forceps was used to take few fragments of tissue from the edge. We then injected tattoo ink in 3 locations around the polypectomy scar. We observed good hemostasis at the conclusion. Multiple photographs were taken. The polyp appeared to be completely excised. The scope was then slowly withdrawn over greater than 6 minutes. The mucosa was thoroughly inspected. No other abnormalities were seen throughout the colon. The scope was retroflexed in the rectum. No other abnormalities were noted here. The scope was straightened and removed. The patient was awakened and brought to recovery. Versed: 9 mg Fentanyl: To 25 mcg EBL: 10 mL Findings: 2-3 cm sessile polyp in the cecum. Scope withdrawal time: 26 Sedation minutes: 43 Post-procedure Recommendations: Will call with biopsy results Disposition: PACU
== END 2022-01-27 15:03 | disposition home or self-care (01) ==
PROVIDERS: PCP Student in an Organized Health Care Education/Training Program; Referring Provider Surgery; Visit Provider Surgery
PROC: 0DJD8ZZ Inspection of Lower Intestinal Tract, Via Natural or Artificial Opening Endoscopic (ICD-10-PCS; CPT 45378; principal; 2022-01-27 12:45)
DX: Z12.11 Encounter for screening for malignant neoplasm of colon (principal); Z80.0 Family history of malignant neoplasm of digestive organs; D12.0 Benign neoplasm of cecum
CPT/HCPCS: 45381; 45385; 45380; 99152; 99153; J2250; J3010

== ENCOUNTER → 2024-08-20 14:18 | Outpatient (CLI) | payer OTHER, SELFPAY ==
--- NOTE | 2024-08-20 14:19 | DI.MG.S_ITS ---
BILATERAL DIGITAL SCREENING MAMMOGRAM 3D/2D WITH CAD: 08/20/2024 CLINICAL: Routine screening. Family history of breast cancer. Comparison is made to exams dated: 12/23/2021 mammogram, 09/11/2017 mammogram, and 07/15/2015 mammogram - [facility]. There are scattered areas of fibroglandular density (category b / 25%-50% glandular tissue). Current study was also evaluated with a Computer Aided Detection (CAD) system. No significant masses, calcifications, or other findings are seen in either breast. There has been no significant interval change. IMPRESSION: NEGATIVE There is no mammographic evidence of malignancy. A 1 year screening mammogram is recommended. Based on the Tyrer Cuzick model (a risk assessment model) the patient's lifetime risk is 8.9% and her 10 year risk is 3.6%. According to the ACR, ACS, and NCCN guidelines, an annual breast MRI exam along with mammogram is recommended if the patient's lifetime risk is 20% or greater. This exam was interpreted at Station ID: [id number]. NOTE: For mammograms, a report in lay terms will be sent to the patient. Approximately 15% of breast malignancies will not be visualized mammographically. In the management of a palpable breast mass, a negative mammogram must not discourage biopsy of a clinically suspicious lesion. Electronically Signed By: Blake [email or web address]/link:08/20/2024 20:26:07 letter sent: Normal Exam ACR BI-RADS Category 1: Negative
== END ==
PROVIDERS: PCP Family Medicine; Referring Provider Family Medicine; Visit Provider Family Medicine
DX: Z12.31 Encounter for screening mammogram for malignant neoplasm of breast (principal); Z80.3 Family history of malignant neoplasm of breast
CPT/HCPCS: 77063; 77067

== ENCOUNTER → 2024-12-30 12:07 | Outpatient (CLI) | payer BC, SELFPAY ==
[2024-12-30 13:03] LABS: Influenza A - CEPHEID Flu A NEGATIVE (NEGATIVE); Influenza B - CEPHEID Flu B NEGATIVE (NEGATIVE); Respiratory Syncytial Virus Negative (Negative)
[2024-12-30 13:05] LABS: COVID-19 CEPHEID 4-PLEX PCR Negative (Negative)
== END ==
PROVIDERS: PCP Family Medicine; Referring Provider Family Medicine; Visit Provider Family Medicine
DX: R52 Pain, unspecified (principal); Z20.822 Contact with and (suspected) exposure to COVID-19
CPT/HCPCS: 0241U

== ENCOUNTER → 2024-12-30 12:44 | Outpatient (CLI) | payer BC, SELFPAY ==
--- NOTE | 2024-12-30 13:46 | DI.RAD.S_ITS ---
PROCEDURE: XR HAND LT MIN 3V INDICATIONS: Bilateral hand pain TECHNIQUE: 3 views of the hand(s) acquired. COMPARISON: None. FINDINGS: Bones: No fractures or dislocations. Moderate degenerative changes include joint space narrowing, marginal osteophytosis and subchondral sclerosis and are noted within the trapeziometacarpal, 1st interphalangeal and 2nd proximal and distal interphalangeal joints. There is mild narrowing of the radiocarpal joint with associated subchondral sclerosis. Carpal bones are normally aligned. No suspicious bony lesions. Soft tissues: No suspicious soft tissue calcifications. 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 No evidence of acute bony abnormality. Dictated by: aZheer Ballard M.D. on 12/31/2024 at 0:02 Approved by: Zaheer Ballard M.D. on 12/31/2024 at 0:23
--- NOTE | 2024-12-30 13:46 | DI.RAD.S_ITS ---
PROCEDURE: XR HAND RT MIN 3V INDICATIONS: Bilateral hand pain TECHNIQUE: 3 views of the hand(s) acquired. COMPARISON: None. FINDINGS: Bones: No fractures or dislocations. Mild degenerative changes of the trapeziometacarpal joint, STT joint, 1st interphalangeal joint and 2nd distal interphalangeal joint include joint space narrowing, marginal osteophytosis and subchondral sclerosis. Mild radiocarpal joint space narrowing and subchondral sclerosis. Carpal bones are normally aligned. No suspicious bony lesions. Soft tissues: No suspicious soft tissue calcifications. IMPRESSION: Mild polyarticular arthropathy involving the TMC, STT, 1st IP, 2nd DIP and radiocarpal joints without evidence of acute bony abnormality. Dictated by: Zaheer Ballard M.D. on 12/31/2024 at 0:23 Approved by: Zaheer Ballard M.D. on 12/31/2024 at 0:25
--- NOTE | 2024-12-30 13:46 | DI.RAD.S_ITS ---
PROCEDURE: XR KNEE LT 3V INDICATIONS: Left knee pain TECHNIQUE: 3 views of the knee were acquired. COMPARISON: None. FINDINGS: Bones: No fractures or dislocations. No suspicious bony lesions. Moderate medial and lateral tibiofemoral and patellofemoral compartment narrowing with associated osteophytosis. Soft tissues: Small joint effusion. No suspicious soft tissue calcifications. IMPRESSION: KL grade 2 tricompartmental osteoarthritis without evidence of acute osseous abnormality. Small joint effusion. Dictated by: Zaheer Ballard M.D. on 12/31/2024 at 0:25 Approved by: Zaheer Ballard M.D. on 12/31/2024 at 0:26
[2024-12-30 13:58] LABS: Add Manual Diff / Slide Review NO; Basophils Absolute Auto 0 /uL (0-100); Basophils Percent Auto 0.7 % (0-2); Eosinophils Absolute Auto 100 /uL (0-450); Eosinophils Percent Auto 1.2 % (2-4); Hemoglobin 13.7 g/dL (12.0-16.0); Lymphocytes Absolute Auto 1300 /uL (1100-4500); Lymphocytes Percent Auto 24.6 % (25-40); Mean Corpuscular HGB Conc 34.2 % (30-36); Mean Corpuscular Hemoglobin 33.2 PG (26-34); Monocytes Absolute Auto 400 /uL (0-900); Neutrophils Absolute Auto 3600 /uL (1500-7000); Neutrophils Percent Auto 66.5 % (50-75); Platelet Count 294 X10^3/uL (150-400); Red Blood Cell Count 4.12 X10^6/uL (4.0-5.2); Red Cell Distribution Width 14.3 % (11.6-14.8); White Blood Cell Count 5.4 X10^3/uL (4.5-11.0)
[2024-12-30 14:10] LABS: Alanine Aminotransferase 20 IU/L (<35); Albumin 4.6 g/dL (3.5-5.0); Albumin Globulin Ratio 1.3 (1.0-2.8); Alkaline Phosphatase 102 U/L (38-126); Aspartate Aminotransferase 30 IU/L (14-36); BUN Creatinine Ratio 18.7 (6-22); Bilirubin Total 0.7 mg/dL (0.2-1.3); Blood Urea Nitrogen 14 mg/dL (7-17); Calcium 9.8 mg/dL (8.4-10.2); Carbon Dioxide 26 mmol/L (22-32); Chloride 103 mmol/L (98-107); Cholesterol 250 mg/dL (140-199); Estimated Glomerular Filt Rate > 60 mL/min (>60); Globulin 3.5 g/dL (1.7-4.1); Glucose 89 mg/dL (70-99); HDL Cholesterol 98 mg/dL (40-60); HEMOLYSIS < 15 (0-50); LDL Cholesterol Calculated 135 mg/dL (<100); Potassium 4.2 mmol/L (3.4-5.1); Sodium 140 mmol/L (137-145); Total Protein 8.1 g/dL (6.3-8.2); Triglycerides 87 mg/dL (35-150)
[2024-12-30 14:14] LABS: Rheumatoid Factor < 8.6 IU/mL (<12.0)
[2024-12-30 14:42] LABS: TSH w/ Reflex to FT4 1.15 uIU/mL (0.47-4.68)
== END ==
PROVIDERS: PCP Family Medicine; Referring Provider Family Medicine; Visit Provider Family Medicine
DX: M19.042 Primary osteoarthritis, left hand (principal); M19.041 Primary osteoarthritis, right hand; M19.032 Primary osteoarthritis, left wrist; M19.031 Primary osteoarthritis, right wrist; M17.12 Unilateral primary osteoarthritis, left knee; M25.461 Effusion, right knee; M79.643 Pain in unspecified hand; M25.569 Pain in unspecified knee; F32.A Depression, unspecified; Z13.6 Encounter for screening for cardiovascular disorders; Z20.822 Contact with and (suspected) exposure to COVID-19
CPT/HCPCS: 0241U; 36415; 73130; 73562; 80053; 80061; 84443; 85025; 86038; 86200; 86430

== ENCOUNTER 2025-03-06 13:47 | Day surgery (SDC) | payer BC, SELFPAY ==
--- NOTE | 2025-03-06 | PATH_ITS ---
[facility] Accession Number: [id number] No. of containers..01 Tissue . 01 Material submitted: . stomach - ANTRUM . 01 Diagnosis: GASTRIC ANTRUM, BIOPSY: Gastric antral mucosa with features of reactive gastropathy. Negative for Helicobacter organisms by immunohistochemistry. Negative for intestinal metaplasia. Negative for dysplasia or malignancy. MRV 03/17/2025 1345 Local . 01 Electronically signed: . Adam Arenas MD, PhD, Pathologist NPI- [id number] . 01 Gross description: . Received in formalin with two identifiers and antrum, are five odonnell soft tissue fragments ranging from 0.4 cm to 1.1 cm in greatest dimension, submitted entirely in A1. ([id number]) /MRV 03/13/2025 1755 Local . 01 Microscopic: . A. An immunohistochemical stain was performed to evaluate for Helicobacter organisms and is negative. The control stain showed appropriate reactivity. . * This test was developed and the performance characteristics were validated by [facility]. It has not been cleared or approved by the U.S. Food and Drug Administration. . 01 Pathologist provided ICD-10: K29.60 . 01 CPT . 188027, A00711 Specimen Comment: A courtesy copy of this report has been sent to [phone] Performed at: [address] [address], [place], [place] [id number] MD Jose Cruz Puckett MD Phone: [phone]
[2025-03-06 14:14] VITALS: BP 146/99; PULSE 81; RESP 16; TEMP 36.2; O2SAT 98
--- NOTE | 2025-03-06 14:21 | P.HP_ITS ---
History of Present Illness History of Present Illness Date Patient Seen: 03/06/25 Time Patient Seen: 14:21 Chief complaint: Screening Colonoscopy Narrative: Ciara is a 59-year-old woman who is here for colonoscopy. She had a rather large tubular adenoma resected piecemeal back in 2021. She has also developed some excessive throat clearing, dysphagia and dry heaves. [facility] Medical History (Updated 03/06/25 @ 14:23 by Sp Villalba MD) Patient denies significant medical history Surgical History (Updated 12/30/24 @ 12:08 by Irina Jenkins MD) History of surgery on wrist History of shoulder surgery No pertinent past surgical history Social History household members: spouse Smoking Status: Former smoker alcohol intake: current Meds Home Medications and Allergies Home Medications ?Medication ?Instructions ?Recorded ?Confirmed ?Type escitalopram oxalate 10 mg tablet 10 tab DAILY 2 02/07/25 History sodium sul 1.479 gram-potas ch See Rx Instructions PO PER PKG DIR 02/25/25 Rx 0.188 gram-magnes sul 0.225 gram #24 tabs tablet (Sutab) Allergies Allergy/AdvReac Type Severity Reaction Status Date / Time codeine (CODEINE) Allergy Severe HEART Verified 03/06/25 14:22 RACING cefaclor (CEFACLOR) Allergy Mild RASH Verified 03/06/25 14:22 Sulfa (Sulfonamide Allergy Mild RASH Verified 03/06/25 14:22 Antibiotics) (SULFA (SULFONAMIDE ANTIBIOTICS)) Exam Vital Signs (past 8 hours): - 03/06/25 14:14 Temperature 97.2 F L Pulse Rate 81 Respiratory Rate 16 Blood Pressure 146/99 H Pulse Oximetry 98 Oxygen Delivery Method Room Air Oxygen Delivery Method Room Air Const General: healthy appearing Assessment & Plan Assessment and plan (1) Dysphagia: Qualifiers: Dysphagia type: oral phase Qualified Code(s): R13.11 - Dysphagia, oral phase Status: Acute (2) History of adenomatous polyp: Status: Acute Plan EGD and colonoscopy Time-Based Coding :: [TOTAL MINUTES] spent with patient and on the chart (including review of chart, obtaining history, exam, reviewing outside data, placing orders, documenting exam and treatment plan, and counseling patient) on [DATE]. [employer] Document charge(s): No
[2025-03-06 15:10] VITALS: BP 110/68; PULSE 68; RESP 16; TEMP 36.3; O2SAT 100
--- NOTE | 2025-03-06 15:11 | PM.OP.EC ---
Operative Date/Time/Diagnoses Date of procedure: 03/06/25 Time of procedure: 15:11 Pre-op diagnosis: History of tubular adenoma and dysphagia Post-op diagnosis: same Procedure & Clinicians Study performed: Esophagogastroduodenoscopy and colonoscopy Same procedure(s) as scheduled: Yes Surgeon: Sp Villalba Anesthesia Type: MAC +/- Procedure Notes Procedure in detail: Surgeon: Sp Villalba MD Anesthesia: Patricia Huddleston CRNA Procedure in detail: A timeout was performed. A bite blocked was placed and monitors were attached to the patient. The patient was positioned in the left lateral decubitus position. Sedation was administered. Once the patient was sedated the endoscope was inserted through the bite block and passed through the esophagus and stomach and into the duodenum. No abnormalities were seen. We then withdrew the scope into the stomach. There was some moderate antritis and biopsies were taken from the antral mucosa with cold forceps. No other abnormalities were seen in the stomach. The endoscope was retroflexed and no abnormalities were seen. The endoscope was straightned and withdrawn into the esophagus. No abnormalities were found in the esophagus. EGD findings: Moderate antritis Next we repositioned the patient for a colonoscopy. A digital rectal exam was performed and was normal. The colonoscope was inserted and advanced to the cecum. The appendiceal orifice was identified and photographed. The scope was slowly withdrawn over greater than 6 minutes. The tattoo ink was still visible in the cecum but there was no evidence of any new or recurrent polyps in the cecum or elsewhere in the colon. The scope was retroflexed in the rectum and no abnormalities were seen. Colonoscopy findings: Tattoo ink in the cecum mucosa and no residual or new polyps throughout colon Total procedural EBL: 5 mL Scope withdrawal time: 8 minutes Sedation minutes: 25 minutes Post-procedure Recommendations: Colonscopy in 5 years Disposition: PACU
[2025-03-06 15:15] VITALS: BP 109/73; PULSE 60; RESP 16; O2SAT 98
[2025-03-06 15:20] VITALS: BP 114/67; PULSE 60; RESP 12; TEMP 36.3; O2SAT 100
[2025-03-06 15:23] VITALS: BP 121/69; PULSE 57; RESP 16; TEMP 36.4; O2SAT 100
== END 2025-03-06 16:20 | disposition home or self-care (01) ==
PROVIDERS: PCP Family Medicine; Referring Provider Surgery; Visit Provider Surgery
PROC: 0DJ08ZZ Inspection of Upper Intestinal Tract, Via Natural or Artificial Opening Endoscopic (ICD-10-PCS; CPT 43239; principal; 2025-03-06 14:45)
PROC: 0DJD8ZZ Inspection of Lower Intestinal Tract, Via Natural or Artificial Opening Endoscopic (ICD-10-PCS; CPT 45378; 2025-03-06 14:45)
DX: Z12.11 Encounter for screening for malignant neoplasm of colon (principal); R13.11 Dysphagia, oral phase; Z86.0101 Personal history of adenomatous and serrated colon polyps; Z87.891 Personal history of nicotine dependence; K29.50 Unspecified chronic gastritis without bleeding; K31.89 Other diseases of stomach and duodenum
CPT/HCPCS: 43239; 45378; J2704

== ENCOUNTER → 2025-05-02 08:27 | Outpatient (CLI) | payer BC, SELFPAY ==
[2025-05-02 08:59] LABS: Estimated Glomerular Filt Rate > 60 mL/min (>60)
--- NOTE | 2025-05-02 10:08 | DI.CT.S_ITS ---
PROCEDURE: CT ABDOMEN PELVIS W CON INDICATIONS: abd pain TECHNIQUE: After the administration of intravenous contrast, axial sections acquired from the lung bases to the pubic symphysis. Coronal and sagittal reformats were performed. For radiation dose reduction, the following was used: automated exposure control, adjustment of mA and/or kV according to patient size. COMPARISON: None. FINDINGS: Image quality: Diagnostic. Lower Chest: No significant findings. ABDOMEN: Liver: No solid mass. Gallbladder: Absent Biliary ducts: No biliary dilation. Pancreas: No ductal dilation. Spleen: Size is within normal limits. Adrenal Glands: No adrenal nodules. Kidneys and Ureters: No hydronephrosis. No solid mass. No complex renal cystic lesion which requires follow up. Stomach and Bowel: Normal colonic caliber, without significant wall thickening. Large diffuse fecal load. Peritoneum: No abnormal intraperitoneal fluid. No free air. Ventral Wall: No significant ventral hernia. Abdominal Nodes: No retroperitoneal or mesenteric adenopathy by size criteria. Vessels: Aorta and inferior vena cava are normal in size. PELVIS: Pelvic Organs: Unremarkable. Bladder: No bladder wall thickening, accounting for underdistention. Pelvic Nodes: No enlarged lymph nodes. Miscellaneous: No inguinal hernias are seen. Bones: No aggressive osseous abnormality. Old T12 compression. IMPRESSION: 1. No acute abdominal process. 2. Large fecal load. 3. Old T12 compression. 4. Remote cholecystectomy. Dictated by: Sameer Hernandes M.D. on 05/02/2025 at 12:03 Approved by: Sameer Hernandes M.D. on 05/02/2025 at 12:06
== END ==
PROVIDERS: PCP Family Medicine; Referring Provider Family Medicine; Visit Provider Family Medicine
DX: K29.50 Unspecified chronic gastritis without bleeding (principal); R10.84 Generalized abdominal pain; Z90.49 Acquired absence of other specified parts of digestive tract
CPT/HCPCS: 36415; 74177; 82565; Q9967